=== PATIENT | male | born 1955 | race Caucasian/White ===

== ENCOUNTER 2023-03-15 21:29 | Emergency (ER) | payer MEDICARE, MEDICAID, SELFPAY ==
[2023-03-15 21:34] VITALS: BP 104/76; PULSE 92; PULSE 93; RESP 15; RESP 16; TEMP 36.4; O2SAT 97
[2023-03-15 21:35] VITALS: BP 104/76; PULSE 93; RESP 15; O2SAT 97
--- NOTE | 2023-03-15 21:43 | ED_ITS ---
HPI - Fall General Chief Complaint: Fall Stated Complaint: FALL Time Seen by Provider: 03/15/23 21:31 Source: other Source comment: EMS, report also called from [facility] Mode of arrival: ambulance Limitations: altered mental status and physical limitation Limitations comment: ROSA MARIA bilateral History of Present Illness HPI Narrative: [facility] patient. octavio CRANE. Wheel chair dependent. Found on the floor in the home. Reportedly unresponsive. Per nursing staff he vomited once. He arrives via [facility]. complains of feeling tired. Denies headache, neck pain or rib pain. Other than feeling tired he feels he is ok. Related Data Home Medications Medication Instructions Recorded Confirmed acarbose 100 mg tablet mg 03/15/23 atorvastatin 40 mg tablet mg 03/15/23 budesonide-formoterol HFA 160 inhalation 03/15/23 mcg-4.5 mcg/actuation aerosol inhaler (Symbicort) duloxetine 30 mg capsule,delayed mg PO 03/15/23 release duloxetine 60 mg capsule,delayed mg PO 03/15/23 release ezetimibe 10 mg tablet mg 03/15/23 insulin aspart U-100 100 unit/mL subcut 03/15/23 (3 mL) subcutaneous pen (Novolog FlexPen U-100 Insulin aspart) ipratropium 0.5 mg-albuterol 3 mg ml inhalation 03/15/23 (2.5 mg base)/3 mL nebulization soln metformin 1,000 mg tablet mg 03/15/23 metoprolol tartrate 25 mg tablet mg 03/15/23 pantoprazole 40 mg tablet,delayed mg PO 03/15/23 release quetiapine 100 mg tablet mg 03/15/23 semaglutide 0.25 mg or 0.5 mg (2 mg subcut 03/15/23 mg/1.5 mL) subcutaneous pen injector (Ozempic) tizanidine 4 mg tablet mg 03/15/23 valsartan 80 mg tablet mg 03/15/23 Allergies Allergy/AdvReac Type Severity Reaction Status Date / Time No Known Drug Allergies Allergy Verified 03/15/23 21:43 Review of Systems ROS Status of ROS 10 or more systems reviewed and unremarkable except as noted in history and below Eyes Reports: change in vision (not able to see much from right eye from old stroke. right eyelid close. ) Exam Constitutional Vital Signs - 24 hr 03/15/23 21:34 03/15/23 21:34 03/15/23 21:35 Temperature 97.5 F L Pulse Rate 92 H 93 H Pulse Rate [Monitor] 93 H Respiratory Rate 16 15 15 Blood Pressure 104/76 Blood Pressure [Right Arm] 104/76 Pulse Oximetry 97 97 Oxygen Delivery Method Room Air 03/15/23 23:42 03/16/23 00:00 03/16/23 00:30 Temperature Pulse Rate 91 H 93 H 94 H Pulse Rate [Monitor] Respiratory Rate 14 16 14 Blood Pressure 124/78 H 116/72 115/75 Blood Pressure [Right Arm] Pulse Oximetry 98 Oxygen Delivery Method Common normals: no apparent distress, oriented x3 and well nourished Eye Common normals: conjunctivae normal Eyelid: eyelids normal (right eye lid close. He is able to pull it open and then it closes) Conjunctiva: conjunctiva(e) normal Chest Common normals: inspection of chest normal and palpation of chest normal Respiratory Common normals: normal respiratory effort, no retractions, no use of accessory muscles and clear to auscultation bilaterally Cardio Common normals: regular rate, regular rhythm, S1 normal heart sound and S2 normal heart sound GI Common normals: Normal to inspection, nondistended, normoactive bowel sounds present, soft to palpation and non-tender Extremity Common normals: normal to inspection (bilat below knee amputee) and no joint enlargement Neuro Common normals: oriented x3 and moves all extremities Psych Appearance: grossly normal Course Vital Signs Vital signs: Vital Signs Temperature 97.5 F L 03/15/23 21:34 Pulse Rate 92 H 03/15/23 21:34 Respiratory Rate 16 03/15/23 21:34 Blood Pressure 104/76 03/15/23 21:34 Pulse Oximetry 97 03/15/23 21:34 Oxygen Delivery Method Room Air 03/15/23 21:34 Temperature 97.5 F L 03/15/23 21:34 Pulse Rate 94 H 03/16/23 00:30 Respiratory Rate 14 03/16/23 00:30 Blood Pressure 115/75 03/16/23 00:30 Pulse Oximetry 98 03/15/23 23:42 Oxygen Delivery Method Room Air 03/15/23 21:34 MDM - Fall MDM Narrative Medical decision making narrative: patient presents from [facility] asymptomatic. Reportedly fell from his wheel chair. He does not recall if he struck his head. Per nursing staff they found him unresponsive and he vomited once. Patient denies chest pain. States other than feeling tired he has no complaint. Exam without any acute findings. labs demonstrated mild hyperkalemia that was treated in the department with hydration and Kayexalate. Serial troponin neg. D-dimer neg. CT brain, C-spine without acute changes. Patient remained asymptomatic. UA ordered but patient states he did not have the urge to go and he refused catheterization . He is discharged [facility] to the [facility] in stable condition. working diagnosis of fall from his chair and possible head injury. He has mild elevation of his creatine that will need to be followed Lab Data Labs: Lab Results 03/15/23 03/16/23 Range/Units 22:03 00:26 WBC 12.7 H (4.0-11.0) 10^3/uL RBC 4.81 (4.70-6.10) 10^6/uL Hgb 12.1 L (14.0-18.0) g/dL Hct 39.5 L (42.0-54.0) % MCV 82.1 (80.0-94.0) fL MCH 25.2 L (25.9-34.0) pg MCHC 30.6 (29.9-35.2) g/dL RDW 17.1 H (11.0-15.0) % Plt Count 299 (150-450) 10^3/uL MPV 11.7 (9.5-13.5) fL Neut % (Auto) 76.5 H (43.0-75.0) % Lymph % (Auto) 15.5 L (20.5-60.0) % Becker % (Auto) 5.3 (1.7-12.0) % Eos % (Auto) 1.6 (0.9-7.0) % Baso % (Auto) 0.2 (0.2-2.0) % Neut # (Auto) 9.7 H (1.4-6.5) 10^3/uL Lymph # (Auto) 2.0 (1.2-3.8) 10^3/uL Becker # (Auto) 0.7 (0.3-0.8) 10^3/uL Eos # (Auto) 0.2 (0.0-0.7) 10^3/uL Baso # (Auto) 0.0 (0.0-0.1) 10^3/uL Abs Immat Gran (auto) 0.11 H (0.00-0.03) 10^3/uL Imm/Tot Granulo (auto) 0.9 H (0.0-0.5) % D-Dimer 0.38 (<=0.59) mg/L FEU Sodium 144 (136-145) mmol/L Potassium 5.2 H (3.5-5.1) mmol/L Chloride 107 (98-107) mmol/L Carbon Dioxide 26.2 (21.0-32.0) mmol/L Anion Gap 16.0 BUN 35.0 H (7.0-18.0) mg/dL Creatinine 1.35 H (0.70-1.30) mg/dL Est GFR ( Amer) >60 (>=60) Est GFR (Non-Af Amer) 53 L (>=60) BUN/Creatinine Ratio 25.9 Glucose 140 H (74-106) mg/dL Calcium 8.9 (8.5-10.1) mg/dL Troponin I High Sens 5.7 4.1 (4.0-76.1) pg/mL Discharge Plan Discharge Chief Complaint: Fall Clinical Impression: Concussion with loss of consciousness, Fall, Acute hyperkalemia Patient Disposition: Home, Self-Care Condition: Good Prescriptions / Home Meds: No Action atorvastatin 40 mg tablet ipratropium-albuterol 0.5 mg-3 mg(2.5 mg base)/3 mL solution for nebulization INHALATION tizanidine 4 mg tablet valsartan 80 mg tablet quetiapine 100 mg tablet acarbose 100 mg tablet pantoprazole 40 mg tablet,delayed release (DR/EC) PO metformin 1,000 mg tablet ezetimibe 10 mg tablet insulin aspart U-100 [Novolog FlexPen U-100 Insulin] 100 unit/mL (3 mL) insulin pen SUBCUT metoprolol tartrate 25 mg tablet duloxetine 30 mg capsule,delayed release(DR/EC) PO duloxetine 60 mg capsule,delayed release(DR/EC) PO budesonide-formoterol [Symbicort] 160-4.5 mcg/actuation HFA aerosol inhaler INHALATION Ozempic 0.25 mg or 0.5 mg(2 mg/1.5 mL) pen injector SUBCUT Instructions: Concussion (ED), Fall Prevention for Older Adults (ED), Hyperkalemia (ED) Additional Instructions: need to have potassium and renal function rechecked tomorrow Stand Alone Forms: Portal Instructions Referrals: Physician,Non-Staff, MD [Primary Care Provider] - 1 week
--- NOTE | 2023-03-15 21:48 | XR_ITS ---
[address] [address] Patient Name: DALILA MCDOWELL MRN: [id number] date: 1955 Sex: M Assigned Patient Location: ED.MAIN Current Patient Location: ER Accession/Order Number: [id number] Exam Date: 03/15/2023 22:05 Report Date: 03/15/2023 22:29 At the request of: YECENIA FRECNH Procedure: XR chest 1V EXAMINATION: XR chest 1V HISTORY: Syncope COMPARISON: Chest x-rays October 29, 2019 TECHNIQUE: Portable chest FINDINGS: The lung parenchyma is free of consolidation or infiltrate. No pneumothorax or pleural effusion. The cardiac, mediastinal and hilar contours are normal. The visualized osseous structures exhibit no gross abnormality. IMPRESSION: No acute cardiopulmonary abnormality. Electronically authenticated by: KATHIE GARCIA Date: 03/15/2023 22:29
--- NOTE | 2023-03-15 21:48 | CT_ITS ---
The [address] [address] Patient Name: DALILA MCDOWELL MRN: [id number] date: 1955 Sex: M Assigned Patient Location: ED.MAIN Current Patient Location: Accession/Order Number: [id number] Exam Date: 03/15/2023 22:05 Report Date: 03/15/2023 22:38 At the request of: YECENIA FRENCH Procedure: CT head/brain wo con NONCONTRAST CT SCAN OF THE HEAD CT head/brain wo con HISTORY: syncope TECHNIQUE: Multiple axial images are taken from the level the vertex down to the base of the skull without the use of IV contrast. Images were then reconstructed in the sagittal and coronal planes. This exam was performed according to our departmental dose-optimization program which includes use of Automated Exposure Control, adjustment of the mA and/or kV according to patient size and/or use of iterative reconstruction technique. COMPARISON: None. FINDINGS: Brain Parenchyma: No intracranial mass. No intracranial hemorrhage. Encephalomalacia is demonstrated in the posterior left temporal lobe as well as bilateral occipital lobes. Posterior fossa: There is encephalomalacia in the left cerebellar hemisphere. Midline shift: None Extra-axial fluid collection: None Ventricles: Normal. Mastoid air cells: Normal. Sinuses: Mucus retention cyst in the right maxillary sinus. Cranium: No depressed skull fracture. Soft tissues: Normal. Orbits: Orbits demonstrate postoperative changes from prior cataract resection with prosthetic lens implant. IMPRESSION: 1. No noncontrast CT evidence for acute intracranial pathology. 2. 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 3. If symptoms continue and if clinically indicated, MRI may help better delineate. Electronically authenticated by: TERRENCE TREJO Date: 03/15/2023 22:38
--- NOTE | 2023-03-15 21:48 | ECG_ITS ---
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
--- NOTE | 2023-03-15 21:48 | CT_ITS ---
The [address] [address] Patient Name: DALILA MCDOWELL MRN: [id number] date: 1955 Sex: M Assigned Patient Location: ED.MAIN Current Patient Location: ER Accession/Order Number: [id number] Exam Date: 03/15/2023 22:05 Report Date: 03/15/2023 22:34 At the request of: YECENIA FRENCH Procedure: CT cervical spine wo con EXAM: CT cervical spine wo con HISTORY: Found unresponsive after fall out of wheelchair COMPARISON: None. TECHNIQUE: Axial CT imaging is performed through the cervical spine. Sagittal and coronal reformatted/reconstructed sequences were additionally performed FINDINGS: IMPRESSION: Age indeterminate straightening of the normal cervical lordosis. Multilevel intervertebral disc space narrowing, endplate, uncovertebral and facet arthrosis. The dens and lateral masses of C1 are symmetric. No visualized prevertebral soft tissue edema. The visualized osseous skull base exhibits no gross visualized abnormality. Mild atherosclerosis of the vascular structures. The visualized pulmonary apices, thoracic inlet and airway exhibit no discrete abnormality. Electronically authenticated by: KATHIE GARCIA Date: 03/15/2023 22:34
[2023-03-15 22:10] LABS: Basophils Percent Auto 0.2 % (0.2-2.0); Eosinophils Absolute Auto 0.2 10^3/uL (0.0-0.7); Eosinophils Percent Auto 1.6 % (0.9-7.0); Hematocrit 39.5 % (42.0-54.0); Hemoglobin 12.1 g/dL (14.0-18.0); Immature Granulocytes Abs Auto 0.11 10^3/uL (0.00-0.03); Immature Granulocytes Pct Auto 0.9 % (0.0-0.5); Lymphocytes Percent Auto 15.5 % (20.5-60.0); Mean Corpuscular HGB Conc 30.6 g/dL (29.9-35.2); Mean Corpuscular Hemoglobin 25.2 pg (25.9-34.0); Mean Corpuscular Volume 82.1 fL (80.0-94.0); Mean Platelet Volume 11.7 fL (9.5-13.5); Monocytes Absolute Auto 0.7 10^3/uL (0.3-0.8); Monocytes Percent Auto 5.3 % (1.7-12.0); Neutrophils Absolute Auto 9.7 10^3/uL (1.4-6.5); Neutrophils Percent Auto 76.5 % (43.0-75.0); Platelet Count 299 10^3/uL (150-450); Red Blood Count 4.81 10^6/uL (4.70-6.10); Red Cell Distribution Width 17.1 % (11.0-15.0); White Blood Count 12.7 10^3/uL (4.0-11.0)
[2023-03-15 22:24] LABS: D Dimer 0.38 mg/L FEU (<=0.59)
[2023-03-15 22:27] LABS: BUN Creatinine Ratio 25.9; Calcium 8.9 mg/dL (8.5-10.1); Carbon Dioxide 26.2 mmol/L (21.0-32.0); Chloride 107 mmol/L (98-107); Estimated GFR (African America >60 (>=60); Estimated GFR (Non-African Ame 53 (>=60); Glucose 140 mg/dL (74-106); Potassium 5.2 mmol/L (3.5-5.1); Sodium 144 mmol/L (136-145); Troponin I High Sensitivity 5.7 pg/mL (4.0-76.1)
[2023-03-15] MEDS: SODIUM POLYSTYRENE SULFON 15 GM/60 ML ORAL.SUSP KAYEXALATE 30 GM PO (23:38)
[2023-03-15] MEDS: 0.9 % SODIUM CHLORIDE 1,000 ML 999 ML IV (23:39)
[2023-03-15 23:42] VITALS: BP 124/78; PULSE 91; RESP 14; O2SAT 98
[2023-03-16] VITALS (7 sets, daily range): BP systolic 115–139; BP diastolic 72–94; PULSE 85–94; RESP 14–25
[2023-03-16 00:49] LABS: Troponin I High Sensitivity 4.1 pg/mL (4.0-76.1)
[2023-03-16] MEDS: 0.9 % SODIUM CHLORIDE 1,000 ML 999 ML IV (01:04)
--- NOTE | 2023-03-16 01:36 | PC.NURSE ---
attempted to get patient to urinate and he refused, he refused a straight cath.
== END 2023-03-16 03:39 | disposition home or self-care (01) ==
PROVIDERS: Emergency Provider Internal Medicine
DX: S06.0X9A Concussion with loss of consciousness of unspecified duration, initial encounter (principal); E87.5 Hyperkalemia; Z89.512 Acquired absence of left leg below knee; Z89.511 Acquired absence of right leg below knee; Z99.3 Dependence on wheelchair; Z79.899 Other long term (current) drug therapy; Z79.4 Long term (current) use of insulin; W05.0XXA Fall from non-moving wheelchair, initial encounter
CPT/HCPCS: 36415; 70450; 71045; 72125; 80048; 80307; 84484; 85025; 85378; 93005; 99285

== ENCOUNTER 2023-04-03 08:27 | Emergency (ER) | payer MEDICARE, MEDICAID, SELFPAY ==
[2023-04-03 08:30] VITALS: BP 152/76; PULSE 121; RESP 18; TEMP 36.6; O2SAT 96; BMI 29.5
--- NOTE | 2023-04-03 08:43 | CT_ITS ---
The [address] [address] Patient Name: DALILA MCDOWELL MRN: [id number] date: 1955 Sex: M Assigned Patient Location: ER Current Patient Location: Accession/Order Number: [id number] Exam Date: 04/03/2023 09:55 Report Date: 04/03/2023 10:35 At the request of: LUDA DIOR Procedure: CT abdomen pelvis w con EXAM: CT abdomen pelvis w con HISTORY: Wound to the testicles with a scrotal abscess. COMPARISON: None. TECHNIQUE: IV contrast only was administered. Sagittal and coronal reformatted images were produced. Dose reduction techniques were achieved by using automated exposure control and/or adjustment of mA and/or kV according to patient size and/or use of iterative reconstruction technique. FINDINGS: Evaluation of lung bases is limited due to breathing motion artifact. There are mild chronic changes in the lung bases. Lower mediastinal structures are normal. The liver, spleen, pancreas, gallbladder and enhance normally. There is mild left adrenal hypertrophy. The right adrenal gland is normal. The kidneys enhance symmetrically and show no calcifications or hydronephrosis. There is scattered calcified and noncalcified plaque in the aorta and branch vessels. There are stents in the common iliac arteries. The large and small bowel are normal caliber. A normal appendix is seen in the right lower quadrant. Pelvic organs are normal. Urinary bladder is normal. There is no free air or free fluid and no inflammatory stranding is seen. In the left scrotum, there is a collection of air and fluid material measuring roughly 4.3 x 12.6 cm. No suspicious or destructive bone lesions are seen. CT/CT abdomen pelvis w con IMPRESSION: No acute process in the abdomen and pelvis. There is what is most likely an abscess in the left scrotum. This appears to be contained in the left scrotum, although the evaluation of this area is somewhat limited. Electronically authenticated by: DALILA MENDEZ Date: 04/03/2023 10:35
--- NOTE | 2023-04-03 08:43 | ECG_ITS ---
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
--- NOTE | 2023-04-03 08:51 | ED.GENADUL1 ---
HPI - General Adult General Chief complaint: Urogenital-Male Stated complaint: WEAKNESS Time Seen by Provider: 04/03/23 08:41 Source: patient Mode of arrival: ambulance History of Present Illness HPI narrative: Patient is a 67-year-old male who is presenting to the Emergency Room from a nursing facility [facility] secondary to elevated blood sugars, dilating his much, not responding as much, lethargic, confusion; patient presented by EMS from the nursing facility. Patient is alert and oriented ?3, GCS 15. Patient is a bilateral amputation below the knee. Patient is complaining of pain beneath the scrotum. Patient has hardening soft tissue area beneath the scrotum, concern for scrotal abscess. Patient is diabetic. Patient denies any chest pain, shortness of breath, he denies any abdominal pain, nausea, vomiting, or any other acute complaints. Patient states he has no ulcerations On his sacrum. Patient states his testicles do not hurt. Patient has no acute complaints at this time. . All systems are negative except as noted/marked. All systems reviewed and otherwise negative. . Nurses note and vital signs reviewed and patient is not hypoxic. Patient is tachycardic. General: The patient appears Mild distress secondary to tachycardia, probable sepsis. Patient is resting comfortably on cart. Patient is not toxic, Slightly lethargic, or listless Skin: Warm, clammy,, no pallor noted. There is no rash noted. No petechiae, purpura. Patient was rolled over, patient has no signs of decubitus ulcerations. Head: Normocephalic, atraumatic Eye: Normal conjunctiva, no drainage, EOMI. PERRL Ears, Nose, Mouth, and Throat: oral mucosa is dry.. Nares patent. Mouth without vesicles. Cardiovascular: Tachycardic Regular Rate and Rhythm, no murmur, gallop, rub Respiratory: Patient is in no distress, no accessory muscle use, lungs are clear to auscultation, no wheezing, rales or rhonchi Back: non-tender, no CVA tenderness bilaterally to percussion. No CT LS midline pain GI: soft, no tenderness to palpation, no masses appreciated. No rebound, guarding, or rigidity noted. No flank pain bilateral, No distention. : Patient is circumcised, patient has 2 descended testicles, no tenderness to palpation to bilateral testicles. Patient does have a moderate size firm mass to the perineum, below the scrotum, patient has mild to moderate tenderness to palpation to the area as well. Musculoskeletal: Patient has full range of motion of all of the extremities; Patient is a bilateral below-knee amputation, no motor, sensory, or focal neurological deficits Neurological: A&O x3, normal speech Psychiatric: Cooperative Related Data Home Medications Medication Instructions Recorded Confirmed acarbose 100 mg tablet mg 03/15/23 atorvastatin 40 mg tablet mg 03/15/23 budesonide-formoterol HFA 160 inhalation 03/15/23 mcg-4.5 mcg/actuation aerosol inhaler (Symbicort) duloxetine 30 mg capsule,delayed mg PO 03/15/23 release duloxetine 60 mg capsule,delayed mg PO 03/15/23 release ezetimibe 10 mg tablet mg 03/15/23 insulin aspart U-100 100 unit/mL subcut 03/15/23 (3 mL) subcutaneous pen (Novolog FlexPen U-100 Insulin aspart) ipratropium 0.5 mg-albuterol 3 mg ml inhalation 03/15/23 (2.5 mg base)/3 mL nebulization soln metformin 1,000 mg tablet mg 03/15/23 metoprolol tartrate 25 mg tablet mg 03/15/23 pantoprazole 40 mg tablet,delayed mg PO 03/15/23 release quetiapine 100 mg tablet mg 03/15/23 semaglutide 0.25 mg or 0.5 mg (2 mg subcut 03/15/23 mg/1.5 mL) subcutaneous pen injector (Ozempic) tizanidine 4 mg tablet mg 03/15/23 valsartan 80 mg tablet mg 03/15/23 Allergies Allergy/AdvReac Type Severity Reaction Status Date / Time No Known Drug Allergies Allergy Verified 03/15/23 21:43 Exam Constitutional Vital Signs, click to edit/add: Last Vital Signs Temp 97.8 F 04/03/23 08:30 Pulse 121 H 04/03/23 08:30 Resp 18 04/03/23 08:30 BP 135/70 H 04/03/23 10:16 Pulse Ox 96 04/03/23 08:30 O2 Del Method Room Air 04/03/23 08:30 Course Vital Signs Vital signs: Vital Signs Temperature 97.8 F 04/03/23 08:30 Pulse Rate 121 H 04/03/23 08:30 Respiratory Rate 18 04/03/23 08:30 Blood Pressure 152/76 H 04/03/23 08:30 Pulse Oximetry 96 04/03/23 08:30 Oxygen Delivery Method Room Air 04/03/23 08:30 Temperature 97.8 F 04/03/23 08:30 Pulse Rate 121 H 04/03/23 08:30 Respiratory Rate 18 04/03/23 08:30 Blood Pressure 135/70 H 04/03/23 10:16 Pulse Oximetry 96 04/03/23 08:30 Oxygen Delivery Method Room Air 04/03/23 08:30 Medical Decision Making MDM Narrative Medical decision making narrative: Multiple phone calls have been made on behalf of this patient. I have spoken to the on-call urologist, [id number]. After paging for approximately one hour; Once we are able to obtain his cell phone number, he called back shortly. We're initially calling his office number because we do not have the appropriate number with registration to contact him. Secondary to air, infection, scrotum, poorly controlled diabetic, he recommended transfer to a tertiary care center. Patient states that he had both of his legs amputated at the [facility], per medical. Patient was asking to be transferred to [facility] if possible. [id number] Lieberman After approximately 30 minutes in paging him through the transfer center at the [facility]. He is very pleasant to talk to, very thankful for the conversation. He stated the patient needs to be transferred as soon as possible to get to the Emergency Room because patient will most likely be going to surgery and these infections can progress rapidly. He is very helpful and recommended stat transfer Emergency Room to Emergency Room to [facility], [facility]. I then spoke to the Emergency Room physician, very pleasant as well, Dr. Lucretia Echeverria. She is aware of Zosyn and vancomycin, recommended starting clindamycin as well and agrees with transfer from Emergency Room to Emergency Room. Patient's heart rate has improved from the 120s down to the 105?113 range. Patient has not been hypotensive. Patient has not had increased respiratory rate. Patient has been given several doses of pain medication, he will be given a 2nd dose of morphine and Zofran prior to discharge. Patient be transferred directly from the Emergency Room to Emergency Room, evaluated by surgical team and most likely going to the operating room for definitive treatment. Patient will be given another dose of Zofran and morphine prior to discharge. We will also check patient's blood sugar again, And treat with subcutaneous insulin if needed. Critical care time 35 minutes exclusive from separate billable procedures that were performed. The following was considered in the determination of critical care but not limited to the level of medical decision making, intensive cardiac and/or respiratory monitoring, frequent vital sign monitoring, evaluation of laboratory studies, evaluation of radiographic studies, oxygen monitoring, and constant monitoring and speaking to family at bedside. Lab Data Lab results reviewed: Yes I reviewed the patient's lab results Labs: Lab Results 04/03/23 04/03/23 04/03/23 Range/Units 08:40 11:50 14:48 WBC 19.8 H (4.0-11.0) 10^3/uL RBC 4.23 L (4.70-6.10) 10^6/uL Hgb 10.6 L (14.0-18.0) g/dL Hct 32.7 L (42.0-54.0) % MCV 77.3 L (80.0-94.0) fL MCH 25.1 L (25.9-34.0) pg MCHC 32.4 (29.9-35.2) g/dL RDW 17.3 H (11.0-15.0) % Plt Count 296 (150-450) 10^3/uL MPV 13.2 (9.5-13.5) fL Seg Neuts % (Manual) 88.0 Band Neutrophils % 2.0 (0-5) % Lymphocytes % (Manual) 6.0 L (20.5-60.0) % Monocytes % (Manual) 4.0 (1.7-12.0) % Eosinophils % (Manual) 0.0 L (0.9-7.0) % Basophils % (Manual) 0.0 L (0.2-2.0) % Neutrophils # (Manual) 17.42 H (1.4-6.5) 10^3/uL Band Neutrophils # 0.4 H (0.0-0.3) 10^3/uL Lymphocytes # (Manual) 1.18 L (1.20-3.80) 10^3/uL Monocytes # (Manual) 0.79 (0.30-0.80) 10^3/uL Eosinophils # (Manual) 0.00 (0.00-0.70) 10^3/uL Basophils # (Manual) 0.00 (0.00-0.10) 10^3/uL Poikilocytosis 1+ Tear Drop Cells 1+ Ovalocytes 1+ PT 10.9 (9.0-11.6) sec INR 1.03 Sodium 136 (136-145) mmol/L Potassium 3.7 (3.5-5.1) mmol/L Chloride 99 (98-107) mmol/L Carbon Dioxide 24.6 (21.0-32.0) mmol/L Anion Gap 16.1 BUN 13.0 (7.0-18.0) mg/dL Creatinine 0.88 (0.70-1.30) mg/dL Est GFR ( Amer) >60 (>=60) Est GFR (Non-Af Amer) >60 (>=60) BUN/Creatinine Ratio 14.8 Glucose 194 H (74-106) mg/dL Lactate 1.1 (0.4-2.0) mmol/L Calcium 8.5 (8.5-10.1) mg/dL Magnesium 1.3 L (1.8-2.4) mg/dL Total Bilirubin 0.7 (0.2-1.0) mg/dL AST 11 L (15-37) U/L ALT 12 L (16-63) U/L Alkaline Phosphatase 111 (46-116) U/L Total Protein 7.1 (6.4-8.2) g/dL Albumin 2.8 L (3.4-5.0) g/dL Globulin 4.3 g/dL Albumin/Globulin Ratio 0.7 Urine Color Yellow (YELLOW) Urine Clarity Clear (CLEAR) Urine pH 5.5 (5.0-9.0) Ur Specific [place] <=1.005 A (1.005-1.025) Urine Protein 30 A (NEG/TRACE) mg/dL Urine Glucose (UA) Negative (NEGATIVE) mg/dL Urine Ketones Trace A (NEGATIVE) mg/dL Urine Occult Blood Moderate A (NEGATIVE) Urine Nitrite Negative (NEGATIVE) Urine Bilirubin Negative (NEGATIVE) Urine Urobilinogen 2.0 A (0.2-1.0) EU/dL Ur Leukocyte Esterase Negative (NEGATIVE) Urine RBC 10-20 A (0-2) #/HPF Urine WBC None seen (NONE SEEN) #/HPF Ur Squamous Epith Cells Few A (NONE/RARE) #/LPF Urine Bacteria None seen (NONE SEEN) #/HPF Urine Mucus None seen (NONE SEEN) POC Glucose 183 H (74-106) mg/dL Imaging Data CT scan - abdomen: Radiologist's impression: [facility] [address], [place] [address] Patient Name: DALILA MCDOWELL MRN: [id number] date: 1955 Sex: M Assigned Patient Location: ER Current Patient Location: ER Accession/Order Number: [id number] Exam Date: 04/03/2023 09:55 Report Date: 04/03/2023 10:35 At the request of: LUDA DIOR Procedure: CT abdomen pelvis w con EXAM: CT abdomen pelvis w con HISTORY: Wound to the testicles with a scrotal abscess. COMPARISON: None. TECHNIQUE: IV contrast only was administered. Sagittal and coronal reformatted images were produced. Dose reduction techniques were achieved by using automated exposure control and/or adjustment of mA and/or kV according to patient size and/or use of iterative reconstruction technique. FINDINGS: Evaluation of lung bases is limited due to breathing motion artifact. There are mild chronic changes in the lung bases. Lower mediastinal structures are normal. The liver, spleen, pancreas, gallbladder and enhance normally. There is mild left adrenal hypertrophy. The right adrenal gland is normal. The kidneys enhance symmetrically and show no calcifications or hydronephrosis. There is scattered calcified and noncalcified plaque in the aorta and branch vessels. There are stents in the common iliac arteries. The large and small bowel are normal caliber. A normal appendix is seen in the right lower quadrant. Pelvic organs are normal. Urinary bladder is normal. There is no free air or free fluid and no inflammatory stranding is seen. In the left scrotum, there is a collection of air and fluid material measuring roughly 4.3 x 12.6 cm. No suspicious or destructive bone lesions are seen. IMPRESSION: No acute process in the abdomen and pelvis. There is what is most likely an abscess in the left scrotum. This appears to be contained in the left scrotum, although the evaluation of this area is somewhat limited. ECG Data Attestation: I personally reviewed and interpreted this ECG as follows: Interpretation: EKG interpretation. Tachycardia at 121. Left axis deviation. Nonspecific ST changes, right bundle-branch block noted, QTC of 418. Critical Care Time Critical Care Time Critical Care Time: Yes Total Critical Care Time: 35 Attestation: Critical care time 35 minutes exclusive from separate billable procedures that were performed. 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 ER doctor Dr Jasmine Condition: Critical Mode of Transportation: EMS Discharge Date/Time: 04/03/23 15:24
[2023-04-03] MEDS: LACTATED RINGER'S SOLUTION 1,000 ML 999 ML IV (09:12)
[2023-04-03 09:17] VITALS: BP 117/69
[2023-04-03 09:24] LABS: Hematocrit 32.7 % (42.0-54.0); Hemoglobin 10.6 g/dL (14.0-18.0); Mean Corpuscular HGB Conc 32.4 g/dL (29.9-35.2); Mean Corpuscular Hemoglobin 25.1 pg (25.9-34.0); Mean Corpuscular Volume 77.3 fL (80.0-94.0); Mean Platelet Volume 13.2 fL (9.5-13.5); Platelet Count 296 10^3/uL (150-450); Red Blood Count 4.23 10^6/uL (4.70-6.10); Red Cell Distribution Width 17.3 % (11.0-15.0); White Blood Count 19.8 10^3/uL (4.0-11.0)
[2023-04-03 09:25] LABS: Lactate/Lactic Acid 1.1 mmol/L (0.4-2.0)
[2023-04-03 09:26] LABS: INR 1.03; Prothrombin Time 10.9 sec (9.0-11.6)
[2023-04-03 09:30] VITALS: BP 110/78
[2023-04-03 09:31] LABS: Alanine Aminotransferase 12 U/L (16-63); Albumin Globulin Ratio 0.7; Albumin Level 2.8 g/dL (3.4-5.0); Alkaline Phosphatase 111 U/L (46-116); Anion Gap 16.1; Aspartate Amino Transferase 11 U/L (15-37); BUN Creatinine Ratio 14.8; Bilirubin Total 0.7 mg/dL (0.2-1.0); Calcium 8.5 mg/dL (8.5-10.1); Carbon Dioxide 24.6 mmol/L (21.0-32.0); Chloride 99 mmol/L (98-107); Estimated GFR (African America >60 (>=60); Estimated GFR (Non-African Ame >60 (>=60); Globulin 4.3 g/dL; Glucose 194 mg/dL (74-106); Magnesium 1.3 mg/dL (1.8-2.4); Potassium 3.7 mmol/L (3.5-5.1); Sodium 136 mmol/L (136-145); Total Protein 7.1 g/dL (6.4-8.2)
[2023-04-03 09:45] VITALS: BP 144/52
[2023-04-03 10:13] LABS: Band Neutrophils Absolute 0.4 10^3/uL (0.0-0.3); Lymphocytes Absolute Manual 1.18 10^3/uL (1.20-3.80); Segmented Neut Absolute Manual 17.42 10^3/uL (1.4-6.5)
[2023-04-03 10:14] LABS: Monocytes Absolute Manual 0.79 10^3/uL (0.30-0.80); Poikilocytosis 1+
[2023-04-03 10:15] LABS: Ovalocytes 1+; Tear Drop Cells 1+
[2023-04-03 10:16] VITALS: BP 135/70
--- NOTE | 2023-04-03 10:30 | XR_ITS ---
The [address] [address] Patient Name: DALILA MCDOWELL MRN: [id number] date: 1955 Sex: M Assigned Patient Location: ER Current Patient Location: ER Accession/Order Number: [id number] Exam Date: 04/03/2023 10:30 Report Date: 04/03/2023 10:47 At the request of: LUDA DIOR Procedure: XR chest 1V EXAM: Portable chest REASON FOR EXAM: Shortness of breath with weakness and loss of appetite. TECHNIQUE: A portable frontal view of the chest was obtained. COMPARISON: 03/15/2023. FINDINGS: The lungs are well-inflated and clear. The heart and mediastinum are stable in appearance. There is no mass or pathologic adenopathy. Osseous structures are normal. XR/XR chest 1V IMPRESSION: No acute cardiopulmonary process. Electronically authenticated by: DALILA MENDEZ Date: 04/03/2023 10:47
[2023-04-03] MEDS: MAGNESIUM OXIDE 400 MG TABLET 800 MG PO (10:36)
[2023-04-03 12:19] LABS: Bilirubin Urine NEGATIVE (NEGATIVE); Blood Urine MODERATE (NEGATIVE); Clarity Urine CLEAR (CLEAR); Color Urine YELLOW (YELLOW); Glucose Urine UA NEGATIVE (NEGATIVE); Ketones Urine TRACE mg/dL (NEGATIVE); Leukocyte Esterase Urine NEGATIVE (NEGATIVE); Nitrite Urine NEGATIVE (NEGATIVE); Protein Urine 30 mg/dL (NEG/TRACE); Specific Gravity Urine <=1.005 (1.005-1.025); pH Urine 5.5 (5.0-9.0)
[2023-04-03 12:27] LABS: Bacteria Urine NONE SEEN #/HPF (NONE SEEN); WBC Urine NONE SEEN #/HPF (NONE SEEN)
[2023-04-03 12:28] LABS: Mucus Urine NONE SEEN (NONE SEEN); Squamous Epithelial Cell Urine FEW #/LPF (NONE/RARE)
[2023-04-03] MEDS: LACTATED RINGER'S SOLUTION 1,000 ML 125 ML IV (13:00)
[2023-04-03] MEDS: VANCOMYCIN HCL 1,000 MG in 0.9 % SODIUM CHLORIDE 250 ML 250 MG IV (13:26)
[2023-04-03] MEDS: MORPHINE SULFATE 4 MG/ML VIAL IV ×2 (13:26→15:01)
[2023-04-03] MEDS: LACTATED RINGER'S SOLUTION 1,000 ML 2500 ML IV (13:36)
[2023-04-03] MEDS: PIPERACILLIN SODIUM/TAZOBACTAM 4.5 GM VIAL IV (14:35)
[2023-04-03] MEDS: CLINDAMYCIN PHOSPHATE/D5W 900 MG/50 ML PIGGYBACK 100 MG IV (14:39)
[2023-04-03 14:50] LABS: Glucometer 183 mg/dL (74-106)
[2023-04-03] MEDS: ONDANSETRON PF 4 MG/2 ML VIAL IV (15:01)
--- NOTE | 2023-04-03 15:34 | PC.NURSE ---
this nurse gave 2 units of regular insulin prior to disposition witneesed by nilda
== END 2023-04-03 15:24 | disposition short-term general hospital (02) ==
PROVIDERS: Emergency Provider Emergency Medicine
DX: A41.9 Sepsis, unspecified organism (principal); E11.65 Type 2 diabetes mellitus with hyperglycemia; N49.3 Fournier gangrene; N49.2 Inflammatory disorders of scrotum; Z79.899 Other long term (current) drug therapy; Z79.84 Long term (current) use of oral hypoglycemic drugs; Z79.4 Long term (current) use of insulin; Z89.612 Acquired absence of left leg above knee; Z89.611 Acquired absence of right leg above knee
CPT/HCPCS: 36415; 71045; 74177; 80053; 81001; 83605; 83735; 84145; 85007; 85025; 85610; 87040; 93005; 96374; 96375; 96376; 99285; J3370; Q9967

== ENCOUNTER 2023-12-14 13:37 | Emergency (ER) | payer MEDICARE, MEDICAID, SELFPAY ==
[2023-12-14 13:42] VITALS: BP 178/97; PULSE 94; TEMP 36.9; O2SAT 97
--- NOTE | 2023-12-14 13:43 | CT_ITS ---
The [address] [address] Patient Name: DALILA MCDOWELL MRN: [id number] date: 1955 Sex: M Assigned Patient Location: ER Current Patient Location: Accession/Order Number: [id number] Exam Date: 12/14/2023 14:39 Report Date: 12/14/2023 15:53 At the request of: MARCO A BOTELLO Procedure: CT abdomen pelvis w con EXAMINATION: CT abdomen pelvis w con HISTORY: Umbilical mass COMPARISON: CT abdomen pelvis 04/03/2023 TECHNIQUE: Axial, Coronal, and Sagittal images were obtained without and/or with IV contrast as indicated by examination type. Dose reduction techniques were achieved by using automated exposure control and/or adjustment of mA and/or kV according to patient size and/or use of iterative reconstruction technique. FINDINGS: LUNG BASES: No visible pulmonary or pleural disease. LIVER: No enlargement, atrophy, suspicious density, or significant focal lesion. BILIARY: No dilatation or calcification. PANCREAS: No lesion, fluid collection, or abnormal duct dilatation. SPLEEN: No enlargement or focal lesion. ADRENALS: Stable small nonspecific nodules bilaterally. KIDNEYS: No mass, obstruction, or calcification. BOWEL/MESENTERY: Mild diverticulosis of distal colon; no acute inflammatory changes. No visible mass, obstruction, or bowel wall thickening. Normal appendix. Unremarkable stomach and small bowel. AORTA/VASCULAR: No aneurysm or dissection. Endovascular stents within bilateral iliac arteries. RETROPERITONEUM: No mass or adenopathy. LYMPH NODES: No adenopathy. URINARY BLADDER: No visible focal wall thickening, lesion, or calculus. PELVIC ORGANS: Incidental small diverticulum. No stones or mass. ABDOMINAL WALL: On the right margin of the umbilicus is a 1.9 cm round hypodensity with surrounding inflammatory changes and slightly thickened wall; no free air, possibly an abscess. BONES: No bony lesion or fracture. OTHER: Negative. CT/CT abdomen pelvis w con IMPRESSION: 1. Small 1.9 cm lesion versus fluid collection versus abscess along the right margin of the umbilicus with moderate surrounding inflammatory. No intraperitoneal or bowel involvement. I suspect this represents an abscess. Electronically authenticated by: BRUNO BLACK Date: 12/14/2023 15:53
--- NOTE | 2023-12-14 13:44 | ED_ITS ---
HPI HPI - General Adult General Chief complaint: Wound/Laceration Stated complaint: WOUND Time Seen by Provider: 12/14/23 13:40 History of Present Illness HPI narrative: Patient is a 68-year-old male who presents to the emergency department by ambulance for a firm mass in the umbilicus that has been present for the last 2 weeks. Patient states that it is painful mildly, intermittently. He has had no fevers, chills, nausea, vomiting. He denies any issues eating and drinking. He asked for Tylenol at the assisted living where he is a resident and the physician recommended he come to the emergency department today, no testing has been ordered and he has not had any change in his symptoms today. No medications taken prior to arrival other than the Tylenol. Patient states he has had no issues urinating or with bowel movements. Related Data Home Medications ?Medication ?Instructions ?Recorded ?Confirmed acarbose 100 mg tablet mg 03/15/23 atorvastatin 40 mg tablet mg 03/15/23 budesonide-formoterol HFA 160 inhalation 03/15/23 mcg-4.5 mcg/actuation aerosol inhaler (Symbicort) duloxetine 30 mg capsule,delayed mg PO 03/15/23 release duloxetine 60 mg capsule,delayed mg PO 03/15/23 release ezetimibe 10 mg tablet mg 03/15/23 insulin aspart U-100 100 unit/mL subcut 03/15/23 (3 mL) subcutaneous pen (Novolog FlexPen U-100 Insulin aspart) ipratropium 0.5 mg-albuterol 3 mg ml inhalation 03/15/23 (2.5 mg base)/3 mL nebulization soln metformin 1,000 mg tablet mg 03/15/23 metoprolol tartrate 25 mg tablet mg 03/15/23 pantoprazole 40 mg tablet,delayed mg PO 03/15/23 release quetiapine 100 mg tablet mg 03/15/23 semaglutide 0.25 mg or 0.5 mg (2 mg subcut 03/15/23 mg/1.5 mL) subcutaneous pen injector (Ozempic) tizanidine 4 mg tablet mg 03/15/23 valsartan 80 mg tablet mg 03/15/23 Previous Rx's ?Medication ?Instructions ?Recorded cephalexin 500 mg capsule 500 mg PO Q8H 10 days #30 caps 12/14/23 sulfamethoxazole 800 1 tab PO BID 10 days #20 tabs 12/14/23 mg-trimethoprim 160 mg tablet (Bactrim DS) Allergies Allergy/AdvReac Type Severity Reaction Status Date / Time No Known Drug Allergies Allergy Verified 03/15/23 21:43 Opioid HPI Opioid Management Most Recent Opioid Data: Last Pain Scale 8 12/14/23 14:17 Last ED Pain Assessment 12/14/23 14:17 Review of Systems ROS Constitutional Denies: fever or chills Ears, nose, mouth, and throat Denies: throat pain or nasal congestion Cardiovascular Denies: chest pain Respiratory Denies: shortness of breath Gastrointestinal Reports: abdominal pain; Denies: nausea, vomiting or diarrhea Genitourinary Denies: painful urination Musculoskeletal Denies: back pain Integumentary/Breast Denies: rash Hematologic/Lymphatic Denies: easy bruising or easy bleeding Exam Narrative Exam Narrative: Gen.: Awake, alert, in no distress Head: Normocephalic, atraumatic ENT: Moist mucous membranes Respiratory: No respiratory distress Gastrointestinal: Abdomen is soft, nondistended Erythematous bulging in the umbilicus, small herniated area. Surrounding abdomen is firm. Nontender to palpation, no fluctuance, open wounds or drainage. Extremities: Moves extremities equally Psych: Normal mood and affect Neuro: No focal neuro deficit Skin: Warm, dry, intact Constitutional Vital Signs, click to edit/add: Last Vital Signs Temp 98.4 F 12/14/23 13:42 Pulse 94 H 12/14/23 13:42 Resp 15 12/14/23 13:42 BP 178/97 H 12/14/23 13:42 Pulse Ox 97 12/14/23 13:42 O2 Del Method Room Air 12/14/23 13:42 Course Vital Signs Vital signs: Vital Signs Temperature 98.4 F 12/14/23 13:42 Pulse Rate 94 H 12/14/23 13:42 Respiratory Rate 15 12/14/23 13:42 Blood Pressure 178/97 H 12/14/23 13:42 Pulse Oximetry 97 12/14/23 13:42 Oxygen Delivery Method Room Air 12/14/23 13:42 Temperature 98.4 F 12/14/23 13:42 Pulse Rate 94 H 12/14/23 13:42 Respiratory Rate 15 12/14/23 13:42 Blood Pressure 178/97 H 12/14/23 13:42 Pulse Oximetry 97 12/14/23 13:42 Oxygen Delivery Method Room Air 12/14/23 13:42 Medical Decision Making MDM Narrative Medical decision making narrative: Patient declined the need for any pain medication in the ER, vital signs are st able, WBC count is normal. Patient sent for CT of the abdomen and pelvis with IV contrast showing a 1.9 cm lesion in the umbilical area with surrounding inflammation consistent with fluid collection versus abscess versus mass. I discussed these results with Dr. Lawrence for general surgery. We will place the patient on Bactrim, Keflex for antibiotic coverage and he was encouraged to use warm compresses to the area. Dr. Lawrence will see him in the office for reevaluation to determine if this may need a procedure to drain it. Return to the ER if symptoms change or worsen. Medical Records Medical records reviewed: Yes I reviewed the patient's medical records Lab Data Lab results reviewed: Yes I reviewed the patient's lab results Labs: Lab Results 12/14/23 Range/Units 13:00 WBC 9.4 (4.0-11.0) 10^3/uL RBC 4.72 (4.70-6.10) 10^6/uL Hgb 11.6 L (14.0-18.0) g/dL Hct 38.0 L (42.0-54.0) % MCV 80.5 (80.0-94.0) fL MCH 24.6 L (25.9-34.0) pg MCHC 30.5 (29.9-35.2) g/dL RDW 16.5 H (11.0-15.0) % Plt Count 314 (150-450) 10^3/uL MPV 12.0 (9.5-13.5) fL Neut % (Auto) 69.4 (43.0-75.0) % Lymph % (Auto) 21.6 (20.5-60.0) % Giles % (Auto) 7.0 (1.7-12.0) % Eos % (Auto) 1.2 (0.9-7.0) % Baso % (Auto) 0.3 (0.2-2.0) % Neut # (Auto) 6.5 (1.4-6.5) 10^3/uL Lymph # (Auto) 2.0 (1.2-3.8) 10^3/uL Giles # (Auto) 0.7 (0.3-0.8) 10^3/uL Eos # (Auto) 0.1 (0.0-0.7) 10^3/uL Baso # (Auto) 0.0 (0.0-0.1) 10^3/uL Abs Immat Gran (auto) 0.05 H (0.00-0.03) 10^3/uL Imm/Tot Granulo (auto) 0.5 (0.0-0.5) % Sodium 134 L (136-145) mmol/L Potassium 4.5 (3.5-5.1) mmol/L Chloride 99 (98-107) mmol/L Carbon Dioxide 28.4 (21.0-32.0) mmol/L Anion Gap 11.1 BUN 16.0 (7.0-18.0) mg/dL Creatinine 1.02 (0.70-1.30) mg/dL Est GFR ( Amer) >60 (>=60) Est GFR (Non-Af Amer) >60 (>=60) BUN/Creatinine Ratio 15.7 Glucose 453 H (74-106) mg/dL Calcium 8.4 L (8.5-10.1) mg/dL Total Bilirubin 0.3 (0.2-1.0) mg/dL AST 9 L (15-37) U/L ALT 17 (16-63) U/L Alkaline Phosphatase 120 H (46-116) U/L Total Protein 6.2 L (6.4-8.2) g/dL Albumin 3.1 L (3.4-5.0) g/dL Globulin 3.1 g/dL Albumin/Globulin Ratio 1.[address] scan - abdomen: Attestation: I have reviewed the pertinent imaging results. Radiologist's impression: ITS Impressions Abdomen/Pelvis CT 12/14/23 13:43 IMPRESSION: 1. Small 1.9 cm lesion versus fluid collection versus abscess along the right margin of the umbilicus with moderate surrounding inflammatory. No intraperitoneal or bowel involvement. I suspect this represents an abscess. Electronically authenticated by: BRUNO BLACK Date: 12/14/2023 15:53 Discharge Plan Discharge Stand Alone Forms: Portal Instructions Chief Complaint: Wound/Laceration Clinical Impression: Umbilical mass Patient Disposition: Home, Self-Care Time of Disposition Decision: 16:04 Condition: Good Prescriptions / Home Meds: New sulfamethoxazole-trimethoprim [Bactrim DS] 800-160 mg tablet 1 tab PO BID 10 Days Qty: 20 0RF cephalexin 500 mg capsule 500 mg PO Q8H 10 Days Qty: 30 0RF No Action atorvastatin 40 mg tablet ipratropium-albuterol 0.5 mg-3 mg(2.5 mg base)/3 mL solution for nebulization INHALATION tizanidine 4 mg tablet valsartan 80 mg tablet quetiapine 100 mg tablet acarbose 100 mg tablet pantoprazole 40 mg tablet,delayed release (DR/EC) PO metformin 1,000 mg tablet ezetimibe 10 mg tablet insulin aspart U-100 [Novolog FlexPen U-100 Insulin] 100 unit/mL (3 mL) insulin pen SUBCUT metoprolol tartrate 25 mg tablet duloxetine 30 mg capsule,delayed release(DR/EC) PO duloxetine 60 mg capsule,delayed release(DR/EC) PO budesonide-formoterol [Symbicort] 160-4.5 mcg/actuation HFA aerosol inhaler INHALATION Ozempic 0.25 mg or 0.5 mg(2 mg/1.5 mL) pen injector SUBCUT Print Language: Citizen Of [place] Additional Instructions: Apply warm compresses, clean umbilical area with alcohol on a Q-Tip twice a day. Finish antibiotics. Dr. Lawrence will see you in the office for follow up. Call tomorrow for an appointment time. Referrals: Bayron Lawrence MD [Physician] - 12/15/23 (Call Dr. Lawrence's office for follow up this week) Physician,Non-Staff, [Primary Care Provider] - 1 week
[2023-12-14 14:08] LABS: Basophils Percent Auto 0.3 % (0.2-2.0); Eosinophils Absolute Auto 0.1 10^3/uL (0.0-0.7); Eosinophils Percent Auto 1.2 % (0.9-7.0); Hemoglobin 11.6 g/dL (14.0-18.0); Immature Granulocytes Abs Auto 0.05 10^3/uL (0.00-0.03); Immature Granulocytes Pct Auto 0.5 % (0.0-0.5); Lymphocytes Percent Auto 21.6 % (20.5-60.0); Mean Corpuscular HGB Conc 30.5 g/dL (29.9-35.2); Mean Corpuscular Hemoglobin 24.6 pg (25.9-34.0); Mean Corpuscular Volume 80.5 fL (80.0-94.0); Monocytes Absolute Auto 0.7 10^3/uL (0.3-0.8); Neutrophils Absolute Auto 6.5 10^3/uL (1.4-6.5); Neutrophils Percent Auto 69.4 % (43.0-75.0); Platelet Count 314 10^3/uL (150-450); Red Blood Count 4.72 10^6/uL (4.70-6.10); Red Cell Distribution Width 16.5 % (11.0-15.0); White Blood Count 9.4 10^3/uL (4.0-11.0)
[2023-12-14 14:20] LABS: Alanine Aminotransferase 17 U/L (16-63); Albumin Level 3.1 g/dL (3.4-5.0); Alkaline Phosphatase 120 U/L (46-116); Anion Gap 11.1; Aspartate Amino Transferase 9 U/L (15-37); BUN Creatinine Ratio 15.7; Bilirubin Total 0.3 mg/dL (0.2-1.0); Calcium 8.4 mg/dL (8.5-10.1); Carbon Dioxide 28.4 mmol/L (21.0-32.0); Chloride 99 mmol/L (98-107); Estimated GFR (African America >60 (>=60); Estimated GFR (Non-African Ame >60 (>=60); Globulin 3.1 g/dL; Glucose 453 mg/dL (74-106); Potassium 4.5 mmol/L (3.5-5.1); Sodium 134 mmol/L (136-145); Total Protein 6.2 g/dL (6.4-8.2)
== END 2023-12-14 17:45 | disposition home or self-care (01) ==
PROVIDERS: Physician Assistant; Emergency Provider Emergency Medicine Emergency Medical Services
DX: R19.05 Periumbilic swelling, mass or lump (principal); Z79.899 Other long term (current) drug therapy; Z79.84 Long term (current) use of oral hypoglycemic drugs; Z79.4 Long term (current) use of insulin
CPT/HCPCS: 36415; 74177; 80053; 85025; 99285; Q9967

== ENCOUNTER 2024-04-11 13:03 | Observation (INO) | payer MEDICARE, MEDICAID, SELFPAY ==
[2024-04-11] VITALS (28 sets, daily range): BP systolic 140–179; BP diastolic 66–100; PULSE 101–123; TEMP 36.8–36.9; O2SAT 92–99; BMI 31.1
--- NOTE | 2024-04-11 13:23 | ECG_ITS ---
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
--- NOTE | 2024-04-11 13:23 | XR_ITS ---
The [address] [address] Patient Name: DALILA MCDOWELL MRN: [id number] date: 1955 Sex: M Assigned Patient Location: ER Current Patient Location: ER Accession/Order Number: [id number] Exam Date: 04/11/2024 14:45 Report Date: 04/11/2024 15:28 At the request of: MARCO A BOTELLO Procedure: XR chest 1V EXAMINATION: XR chest 1V HISTORY: Confusion COMPARISON: XR chest 04/03/2023 FINDINGS: LUNGS: No significant pulmonary parenchymal abnormalities. VASCULATURE: No increased pulmonary vasculature. PLEURA: No pneumothorax, effusion, or pleural thickening. CARDIAC: No cardiomegaly or cardiac silhouette abnormality. MEDIASTINUM: No visible mass or adenopathy. BONES: No fracture or visible bone lesion. OTHER: Negative. XR/XR chest 1V IMPRESSION: 1. No acute cardiopulmonary process. Electronically authenticated by: BRUNO BLACK Date: 04/11/2024 15:28
--- NOTE | 2024-04-11 13:23 | CT_ITS ---
The [address] [address] Patient Name: DALILA MCDOWELL MRN: [id number] date: 1955 Sex: M Assigned Patient Location: ER Current Patient Location: ER Accession/Order Number: [id number] Exam Date: 04/11/2024 14:45 Report Date: 04/11/2024 15:27 At the request of: MARCO A BOTELLO Procedure: CT head/brain wo con EXAMINATION: CT head/brain wo con HISTORY: Confusion ; recent fall COMPARISON: CT head 03/15/2023 TECHNIQUE: Axial CT images were obtained without IV contrast. Dose reduction techniques were achieved by using automated exposure control and/or adjustment of mA and/or kV according to patient size and/or use of iterative reconstruction technique. FINDINGS: BRAIN: Small area of encephalomalacic changes within right and left occipital lobes and left cerebellum. No hemorrhage, mass, mass effect. No CT evidence of acute ischemia. CSF SPACES: No hydrocephalus, subarachnoid hemorrhage, or mass. Appropriate for age. SKULL: No fracture, mass, or other significant visible lesion. SINUSES: Chronic mucocele within right maxillary sinus. ORBITS: No appreciable abnormality on the limited views. OTHER: Negative CT/CT head/brain wo con IMPRESSION: 1. No acute cranial hemorrhage or appreciable acute abnormality. 2. Stable changes consistent with sequela of remote infarction(s) and age-related changes. 3. Right maxillary chronic sinusitis. 4. No fracture the calvarium or scalp hematoma. Electronically authenticated by: BRUNO BLACK Date: 04/11/2024 15:27
--- NOTE | 2024-04-11 13:24 | XR_ITS ---
The [address] [address] Patient Name: DALILA MCDOWELL MRN: [id number] date: 1955 Sex: M Assigned Patient Location: ER Current Patient Location: ER Accession/Order Number: [id number] Exam Date: 04/11/2024 14:45 Report Date: 04/11/2024 15:29 At the request of: MARCO A BOTELLO Procedure: XR tibia fibula RT 2V PROCEDURE: XR tibia fibula RT 2V HISTORY: Right leg pain, hx BKA, fall two days ago COMPARISON: None. FINDINGS: BONES:Prior amputation at level of mid diaphysis of the right tibia and fibula. No fracture, cortical destruction, or periosteal reaction. SOFT TISSUES:No visible soft tissue swelling. EFFUSION:None visible. OTHER: Negative. XR/XR tibia fibula RT 2V IMPRESSION: 1. Prior melus-bjt-[id number] amputation. 2. No appreciable acute or suspicious abnormality. Electronically authenticated by: BRUNO BLACK Date: 04/11/2024 15:29
--- NOTE | 2024-04-11 13:25 | ED_ITS ---
HPI HPI - General Adult General Chief complaint: Altered Mental Status Stated complaint: CONFUSION Time Seen by Provider: 04/11/24 13:19 Source: patient Mode of arrival: ambulance History of Present Illness HPI narrative: Patient is a 68-year-old male who presents to the emergency department by ambulance from his residence at [place] where he lives for evaluation of confusion and possible sepsis. It was requested by the patient's family that he come to the ER and be evaluated. Patient apparently had a fall at his residence several days ago, family was upset that they were not immediately notified and wanted the patient evaluated today because they believe he is confused and are concerned about a scab to the right lower leg at the previous site of a below the knee amputation. The nurse practitioner at the facility called report stating that they were going to get x-rays and start the patient on antibiotics which she felt they could handle at the facility, but family insisted he be transported. Patient is alert and oriented to person, place, time. He remembers falling but denies hitting his head. He reports some pain at the stump of his below the knee amputation. He has not had any fevers or vomiting. He has no other complaints of pain, chest pain, shortness of breath. Related Data Home Medications ?Medication ?Instructions ?Recorded ?Confirmed acarbose 100 mg tablet mg 03/15/23 atorvastatin 40 mg tablet mg 03/15/23 budesonide-formoterol HFA 160 inhalation 03/15/23 mcg-4.5 mcg/actuation aerosol inhaler (Symbicort) duloxetine 30 mg capsule,delayed mg PO 03/15/23 release duloxetine 60 mg capsule,delayed mg PO 03/15/23 release ezetimibe 10 mg tablet mg 03/15/23 insulin aspart U-100 100 unit/mL subcut 03/15/23 (3 mL) subcutaneous pen (Novolog FlexPen U-100 Insulin aspart) ipratropium 0.5 mg-albuterol 3 mg ml inhalation 03/15/23 (2.5 mg base)/3 mL nebulization soln metformin 1,000 mg tablet mg 03/15/23 metoprolol tartrate 25 mg tablet mg 03/15/23 pantoprazole 40 mg tablet,delayed mg PO 03/15/23 release quetiapine 100 mg tablet mg 03/15/23 semaglutide 0.25 mg or 0.5 mg (2 mg subcut 03/15/23 mg/1.5 mL) subcutaneous pen injector (Ozempic) tizanidine 4 mg tablet mg 03/15/23 valsartan 80 mg tablet mg 03/15/23 Previous Rx's ?Medication ?Instructions ?Recorded cephalexin 500 mg capsule 500 mg PO Q8H 10 days #30 caps 12/14/23 sulfamethoxazole 800 1 tab PO BID 10 days #20 tabs 12/14/23 mg-trimethoprim 160 mg tablet (Bactrim DS) Allergies Allergy/AdvReac Type Severity Reaction Status Date / Time No Known Drug Allergies Allergy Verified 03/15/23 21:43 Opioid HPI Opioid Management Most Recent Opioid Data: Last Pain Scale 8 12/14/23 14:17 Review of Systems ROS Constitutional Denies: fever or chills Ears, nose, mouth, and throat Denies: throat pain or nasal congestion Cardiovascular Denies: chest pain Respiratory Denies: shortness of breath Gastrointestinal Denies: abdominal pain, nausea or vomiting Musculoskeletal Reports: extremity pain; Denies: back pain or neck pain Integumentary/Breast Reports: rash, redness, skin tenderness and skin swelling Hematologic/Lymphatic Denies: easy bruising or easy bleeding Exam Narrative Exam Narrative: Gen.: Awake, alert, in no distress Head: Normocephalic, atraumatic ENT: Moist mucous membranes Respiratory: No respiratory distress, lungs clear bilaterally Cardio: Regular rate and rhythm Gastrointestinal: Abdomen is soft, nondistended and nontender to palpation Extremities: Moves extremities equally, small scabbed area to the right stump at the distal aspect of the leg. Minimal surrounding erythema, no palpable abscess or drainage. No red streaking of the extremities. Left forearm with a mildly indurated open area. No active drainage. No red streaking. Psych: Normal mood and affect Neuro: No focal neuro deficit Skin: Warm, dry Constitutional Vital Signs, click to edit/add: Last Vital Signs Temp 98.2 F 04/11/24 13:04 Pulse 104 H 04/11/24 13:04 Resp 18 04/11/24 13:04 BP 179/94 H 04/11/24 13:04 Pulse Ox 97 04/11/24 13:04 O2 Del Method Room Air 04/11/24 13:04 Course Vital Signs Vital signs: Vital Signs Temperature 98.2 F 04/11/24 13:04 Pulse Rate 104 H 04/11/24 13:04 Respiratory Rate 18 04/11/24 13:04 Blood Pressure 179/94 H 04/11/24 13:04 Pulse Oximetry 97 04/11/24 13:04 Oxygen Delivery Method Room Air 04/11/24 13:04 Temperature 98.2 F 04/11/24 13:04 Pulse Rate 104 H 04/11/24 13:04 Respiratory Rate 18 04/11/24 13:04 Blood Pressure 179/94 H 04/11/24 13:04 Pulse Oximetry 97 04/11/24 13:04 Oxygen Delivery Method Room Air 04/11/24 13:04 Medical Decision Making MDM Narrative Medical decision making narrative: Patient sent for CT of the brain, chest x-ray, x-ray of the right lower leg. No evidence of osteomyelitis or other acute abnormalities. Patient with leukocytosis and elevated lactic acid. He was treated with Zosyn and vancomycin for coverage of the scab to the right lower leg and abscess to the left forearm. No indication for incision and drainage. Urine specimen obtained. Blood cultures obtained and the patient will be admitted for early sepsis. Admitted to the hospitalist service. Stable at time of admission. SUPERVISED APC VISIT, PHYSICIAN ATTESTATION: Based on the medical record the care appears appropriate. ? Medical Records Medical records reviewed: Yes I reviewed the patient's medical records Lab Data Lab results reviewed: Yes I reviewed the patient's lab results Labs: Lab Results 04/11/24 04/11/24 Range/Units 13:18 15:30 WBC 18.6 H (4.0-11.0) 10^3/uL RBC 5.20 (4.70-6.10) 10^6/uL Hgb 12.8 L (14.0-18.0) g/dL Hct 41.8 L (42.0-54.0) % MCV 80.4 (80.0-94.0) fL MCH 24.6 L (25.9-34.0) pg MCHC 30.6 (29.9-35.2) g/dL RDW 18.4 H (11.0-15.0) % Plt Count 313 (150-450) 10^3/uL MPV 12.3 (9.5-13.5) fL Seg Neuts % (Manual) 77.0 H (43.0-75.0) Lymphocytes % (Manual) 14.0 L (20.5-60.0) % Monocytes % (Manual) 9.0 (1.7-12.0) % Eosinophils % (Manual) 0.0 L (0.9-7.0) % Basophils % (Manual) 0.0 L (0.2-2.0) % Neutrophils # (Manual) 14.32 H (1.4-6.5) 10^3/uL Lymphocytes # (Manual) 2.60 (1.20-3.80) 10^3/uL Monocytes # (Manual) 1.67 H (0.30-0.80) 10^3/uL Eosinophils # (Manual) 0.00 (0.00-0.70) 10^3/uL Basophils # (Manual) 0.00 (0.00-0.10) 10^3/uL Anisocytosis 1+ Ovalocytes 1+ ESR 123 H (<=20) mm/hr PT 10.7 (9.0-11.6) sec INR 1.01 VBG pH 7.374 (7.330-7.430) VBG pCO2 49.1 (40.0-52.0) mmHg Sodium 136 (136-145) mmol/L Potassium 3.8 (3.5-5.1) mmol/L Chloride 100 (98-107) mmol/L Carbon Dioxide 27.5 (21.0-32.0) mmol/L Anion Gap 12.3 BUN 12.0 (7.0-18.0) mg/dL Creatinine 0.88 (0.70-1.30) mg/dL Est GFR ( Amer) >60 (>=60) Est GFR (Non-Af Amer) >60 (>=60) BUN/Creatinine Ratio 13.6 Glucose 184 H (74-106) mg/dL Lactate 2.1 H (0.4-2.0) mmol/L Calcium 9.1 (8.5-10.1) mg/dL Total Bilirubin 0.7 (0.2-1.0) mg/dL AST 9 L (15-37) U/L ALT 18 (16-63) U/L Alkaline Phosphatase 132 H (46-116) U/L Troponin I High Sens 10.1 (4.0-76.1) pg/mL C-Reactive Protein 20.47 H (<=0.50) mg/dL Total Protein 7.6 (6.4-8.2) g/dL Albumin 3.3 L (3.4-5.0) g/dL Globulin 4.3 g/dL Albumin/Globulin Ratio 0.8 TSH 1.000 (0.358-3.740) uIU/mL Urine Color Yellow (YELLOW) Urine Clarity Clear (CLEAR) Urine pH 6.0 (5.0-9.0) Ur Specific [place] >=1.030 A (1.005-1.025) Urine Protein 30 A (NEG/TRACE) mg/dL Urine Glucose (UA) >=1000 A (NEGATIVE) mg/dL Urine Ketones Trace A (NEGATIVE) mg/dL Urine Occult Blood Large A (NEGATIVE) Urine Nitrite Negative (NEGATIVE) Urine Bilirubin Negative (NEGATIVE) Urine Urobilinogen 1.0 (0.2-1.0) EU/dL Ur Leukocyte Esterase Negative (NEGATIVE) Imaging Data CT scan - head: Attestation: I have reviewed the pertinent imaging results. Radiologist's impression: ITS Impressions Chest X-Ray 04/11/24 13:23 IMPRESSION: 1. No acute cardiopulmonary process. Electronically authenticated by: BRUNO BLACK Date: 04/11/2024 15:[address] 04/11/24 13:23 IMPRESSION: 1. No acute cranial hemorrhage or appreciable acute abnormality. 2. Stable changes consistent with sequela of remote infarction(s) and age-related changes. 3. Right maxillary chronic sinusitis. 4. No fracture the calvarium or scalp hematoma. Electronically authenticated by: BRUNO BLACK Date: 04/11/2024 15:27 Tibia/Fibula X-Ray 04/11/24 13:24 IMPRESSION: 1. Prior trgpb-cwy-kzob amputation. 2. No appreciable acute or suspicious abnormality. Electronically authenticated by: BRUNO BLACK Date: 04/11/2024 15:29 ECG Data Attestation: I personally reviewed and interpreted this ECG as follows: (Sinus tachycardia at a rate of 105, right bundle branch block with no acute ST elevation or ectopy. EKG reviewed by attending physician) Discharge Plan Discharge Chief Complaint: Altered Mental Status Patient Disposition: Admitted as Observation Time of Disposition Decision: 16:12 Prescriptions / Home Meds: No Action atorvastatin 40 mg tablet ipratropium-albuterol 0.5 mg-3 mg(2.5 mg base)/3 mL solution for nebulization INHALATION tizanidine 4 mg tablet valsartan 80 mg tablet quetiapine 100 mg tablet acarbose 100 mg tablet pantoprazole 40 mg tablet,delayed release (DR/EC) PO metformin 1,000 mg tablet ezetimibe 10 mg tablet insulin aspart U-100 [Novolog FlexPen U-100 Insulin] 100 unit/mL (3 mL) insulin pen SUBCUT metoprolol tartrate 25 mg tablet duloxetine 30 mg capsule,delayed release(DR/EC) PO duloxetine 60 mg capsule,delayed release(DR/EC) PO budesonide-formoterol [Symbicort] 160-4.5 mcg/actuation HFA aerosol inhaler INHALATION Ozempic 0.25 mg or 0.5 mg(2 mg/1.5 mL) pen injector SUBCUT sulfamethoxazole-trimethoprim [Bactrim DS] 800-160 mg tablet 1 tab PO BID 10 Days Qty: 20 0RF cephalexin 500 mg capsule 500 mg PO Q8H 10 Days Qty: 30 0RF Print Language: Kiswahili Referrals: Physician,Non-Staff, MD [Primary Care Provider] - 1 week
[2024-04-11 13:51] LABS: Hematocrit 41.8 % (42.0-54.0); Hemoglobin 12.8 g/dL (14.0-18.0); Mean Corpuscular HGB Conc 30.6 g/dL (29.9-35.2); Mean Corpuscular Hemoglobin 24.6 pg (25.9-34.0); Mean Corpuscular Volume 80.4 fL (80.0-94.0); Mean Platelet Volume 12.3 fL (9.5-13.5); Platelet Count 313 10^3/uL (150-450); Red Cell Distribution Width 18.4 % (11.0-15.0); White Blood Count 18.6 10^3/uL (4.0-11.0)
[2024-04-11 13:52] LABS: PCO2 VBG 49.1 mmHg (40.0-52.0); pH VBG 7.374 (7.330-7.430)
[2024-04-11 14:01] LABS: Erythrocyte Sedimentation Rate 123 mm/hr (<=20)
[2024-04-11] MEDS: 0.9 % SODIUM CHLORIDE 1,000 ML 999 ML IV (14:01)
[2024-04-11 14:06] LABS: INR 1.01; Prothrombin Time 10.7 sec (9.0-11.6)
[2024-04-11 14:14] LABS: Lactate/Lactic Acid 2.1 mmol/L (0.4-2.0)
[2024-04-11 14:16] LABS: Segmented Neut Absolute Manual 14.32 10^3/uL (1.4-6.5)
[2024-04-11 14:17] LABS: Monocytes Absolute Manual 1.67 10^3/uL (0.30-0.80)
[2024-04-11 14:18] LABS: Ovalocytes 1+
[2024-04-11 14:20] LABS: Anisocytosis 1+
[2024-04-11 14:21] LABS: Alanine Aminotransferase 18 U/L (16-63); Albumin Globulin Ratio 0.8; Albumin Level 3.3 g/dL (3.4-5.0); Alkaline Phosphatase 132 U/L (46-116); Anion Gap 12.3; Aspartate Amino Transferase 9 U/L (15-37); BUN Creatinine Ratio 13.6; Bilirubin Total 0.7 mg/dL (0.2-1.0); C Reactive Protein 20.47 mg/dL (<=0.50); Calcium 9.1 mg/dL (8.5-10.1); Carbon Dioxide 27.5 mmol/L (21.0-32.0); Chloride 100 mmol/L (98-107); Estimated GFR (African America >60 (>=60); Estimated GFR (Non-African Ame >60 (>=60); Globulin 4.3 g/dL; Glucose 184 mg/dL (74-106); Potassium 3.8 mmol/L (3.5-5.1); Sodium 136 mmol/L (136-145); Total Protein 7.6 g/dL (6.4-8.2); Troponin I High Sensitivity 10.1 pg/mL (4.0-76.1)
[2024-04-11] MEDS: PIPERACILLIN SODIUM/TAZOBACTAM 4.5 GM in 0.9 % SODIUM CHLORIDE 50 ML IV (15:13)
[2024-04-11 15:42] LABS: Bilirubin Urine NEGATIVE (NEGATIVE); Blood Urine LARGE (NEGATIVE); Clarity Urine CLEAR (CLEAR); Color Urine YELLOW (YELLOW); Glucose Urine UA >=1000 mg/dL (NEGATIVE); Ketones Urine TRACE mg/dL (NEGATIVE); Leukocyte Esterase Urine NEGATIVE (NEGATIVE); Nitrite Urine NEGATIVE (NEGATIVE); Protein Urine 30 mg/dL (NEG/TRACE); Specific Gravity Urine >=1.030 (1.005-1.025)
[2024-04-11 15:46] LABS: Urine Microscopic Indicated YES
[2024-04-11] MEDS: VANCOMYCIN HCL 1,000 MG in 0.9 % SODIUM CHLORIDE 500 ML 250 MG IV (15:57)
[2024-04-11 15:59] LABS: Mucus Urine TRACE (NONE SEEN); RBC Urine >100 #/HPF (0-2); WBC Urine 0-2 #/HPF (NONE SEEN)
[2024-04-11 16:00] LABS: Cast Seen? NONE SEEN #/LPF (NONE SEEN); Crystals Seen? None Seen #/HPF (None Seen); Squamous Epithelial Cell Urine RARE #/LPF (NONE/RARE)
[2024-04-11 16:01] LABS: Bacteria Urine TRACE #/HPF (NONE SEEN)
[2024-04-11 16:02] LABS: Urine Culture Indicated NO
[2024-04-11 17:24] LABS: Glucometer 232 mg/dL (74-106)
[2024-04-11 17:33] LABS: Lactate/Lactic Acid 1.8 mmol/L (0.4-2.0)
[2024-04-11] MEDS: LACTATED RINGER'S SOLUTION 1,000 ML 125 ML IV (18:16)
[2024-04-11] MEDS: ENOXAPARIN SODIUM 40 MG/0.4 ML SYRINGE SUBQ (18:17)
[2024-04-11] MEDS: OXYCODONE HCL 5 MG TABLET PO (20:00)
[2024-04-11] MEDS: VANCOMYCIN HCL 1,000 MG in 0.9 % SODIUM CHLORIDE 250 ML 250 MG IV (20:27)
[2024-04-11 21:41] LABS: Glucometer 312 mg/dL (74-106)
[2024-04-11] MEDS: INSULIN ASPART 300 UNIT/3 ML PEN SUBQ (21:43)
[2024-04-11] MEDS: PIPERACILLIN SODIUM/TAZOBACTAM 3.375 GM in 0.9 % SODIUM CHLORIDE 50 ML IV (21:45)
--- NOTE | 2024-04-11 23:25 | PC.NURSE ---
Entered patients room and telemetry was removed as well as IV pulled out and gown off. When questioned patient replied I dont know why I did it
[2024-04-12] VITALS (12 sets, daily range): BP systolic 121–161; BP diastolic 57–79; PULSE 77–121; TEMP 36.5–37.7; O2SAT 90–94
--- NOTE | 2024-04-12 00:43 | PC.NURSE ---
22g iv inserted to left wrist area
--- NOTE | 2024-04-12 02:19 | PC.NURSE ---
Patient removed IV, gown, and telemetry leads
[2024-04-12] MEDS: OXYCODONE HCL 5 MG TABLET PO ×2 (02:29→17:30)
[2024-04-12] MEDS: VANCOMYCIN HCL 1,000 MG in 0.9 % SODIUM CHLORIDE 250 ML 250 MG IV ×3 (05:17→21:21)
[2024-04-12 06:27] LABS: Basophils Percent Auto 0.2 % (0.2-2.0); Eosinophils Percent Auto 0.1 % (0.9-7.0); Hematocrit 34.5 % (42.0-54.0); Hemoglobin 10.7 g/dL (14.0-18.0); Immature Granulocytes Abs Auto 0.08 10^3/uL (0.00-0.03); Immature Granulocytes Pct Auto 0.4 % (0.0-0.5); Lymphocytes Absolute Auto 1.6 10^3/uL (1.2-3.8); Lymphocytes Percent Auto 8.7 % (20.5-60.0); Mean Corpuscular Hemoglobin 24.9 pg (25.9-34.0); Mean Corpuscular Volume 80.2 fL (80.0-94.0); Mean Platelet Volume 12.9 fL (9.5-13.5); Monocytes Absolute Auto 1.5 10^3/uL (0.3-0.8); Monocytes Percent Auto 8.2 % (1.7-12.0); Neutrophils Absolute Auto 15.3 10^3/uL (1.4-6.5); Neutrophils Percent Auto 82.4 % (43.0-75.0); Platelet Count 240 10^3/uL (150-450); Red Cell Distribution Width 18.3 % (11.0-15.0); White Blood Count 18.6 10^3/uL (4.0-11.0)
[2024-04-12 06:36] LABS: Alanine Aminotransferase 16 U/L (16-63); Albumin Globulin Ratio 0.8; Albumin Level 2.7 g/dL (3.4-5.0); Alkaline Phosphatase 101 U/L (46-116); Anion Gap 15.3; Aspartate Amino Transferase 9 U/L (15-37); BUN Creatinine Ratio 16.7; Bilirubin Total 0.7 mg/dL (0.2-1.0); Calcium 8.2 mg/dL (8.5-10.1); Carbon Dioxide 24.5 mmol/L (21.0-32.0); Chloride 101 mmol/L (98-107); Estimated GFR (African America >60 (>=60); Estimated GFR (Non-African Ame >60 (>=60); Globulin 3.4 g/dL; Glucose 221 mg/dL (74-106); Potassium 3.8 mmol/L (3.5-5.1); Sodium 137 mmol/L (136-145); Total Protein 6.1 g/dL (6.4-8.2)
[2024-04-12] MEDS: INSULIN ASPART 300 UNIT/3 ML PEN SUBQ ×4 (08:06→21:28)
[2024-04-12] MEDS: PIPERACILLIN SODIUM/TAZOBACTAM 3.375 GM in 0.9 % SODIUM CHLORIDE 50 ML IV ×3 (09:16→22:29)
--- NOTE | 2024-04-12 10:34 | US_ITS ---
The [address] [address] Patient Name: DALILA MCDOWELL MRN: [id number] date: 1955 Sex: M Assigned Patient Location: MS Current Patient Location: MS Accession/Order Number: [id number] Exam Date: 04/12/2024 10:40 Report Date: 04/12/2024 11:28 At the request of: SHAIKH JASON Procedure: US venous doppler LE RT Ultrasound venous duplex scan right lower extremity CLINICAL: Bilateral lower leg amputation, redness and pain to right leg stump. TECHNIQUE: Knight-scale, color Doppler and Duplex examination of the right lower extremity was performed with and without provocative maneuvers. FINDINGS: Comparison: None. Sonographic examination of the right lower extremity deep venous system to include the common femoral, superficial femoral and popliteal veins, demonstrates normal compressibility, color-flow, respiratory variation, and augmentation. The origin of the greater saphenous vein demonstrates normal compression, and there is normal color-flow in the proximal profunda femoral vein. There is compressibility and color flow in the proximal peroneal, posterior tibial, and anterior tibial veins. Nonspecific subcutaneous edema of the calf. There is large amount of atherosclerotic plaque and suspected hemodynamically significant stenosis in the right iliac artery. US/US venous doppler LE RT IMPRESSION: 1. No deep venous thrombosis in the right lower extremity. 2. Nonspecific subcutaneous edema of right calf. 3. Significant atherosclerotic plaque and suspected hemodynamically significant stenosis of the right iliac artery, not otherwise evaluated. Electronically authenticated by: HUGO LOPEZ Date: 04/12/2024 11:28
--- NOTE | 2024-04-12 10:47 | CM.NOTE ---
Rounds made with Dr. Herrera. Bayron explains what brought him to the hospital. Dr. Herrera reviews plan of care and Mr. Kevin in agreement.
--- NOTE | 2024-04-12 11:17 | PM.HP ---
HPI H&P: HPI History of Present Illness Chief complaint: CONFUSION ALLTERED MENTAL STATUS Narrative: 68-year-old male with prior history of peripheral vascular disease resulting in bilateral below the knee amputation, currently resides in a custodial was brought in by his family for not acting like himself. Family was concerned that patient may have underlying sepsis and wanted to be evaluated for it. Workup in ER revealed right lower extremity cellulitis at his stump, along with leukocytosis and initial workup being consistent with sepsis. Patient was admitted overnight started on IV fluids, IV vancomycin and Zosyn for his cellulitis. He also had CT head that did not show any acute intracranial pathology. Upon my assessment today, he seems to be at his baseline mental status now and is answering questions appropriately and does not appear to be confused. He was initially admitted as observation but has not shown any improvement clinically for cellulitis/leukocytosis and for that reason, I changed him to inpatient as I anticipate that he will require close inpatient monitoring, workup and treatment for sepsis secondary to cellulitis. Opioid HPI Opioid Management Most Recent Pain and Opioid Data: Last Pain Scale 0 04/12/24 11:17 Last Pain Assessment 04/12/24 11:17 Last MAR Pain Assessment 04/12/24 04:01 Last ORT Total Score 3 04/11/24 17:12 Last ORT Risk Category Low Risk 04/11/24 17:12 Review of Systems ROS Status of ROS 10 or more systems reviewed and unremarkable except as noted in history and below [facility] Medical History (Updated 04/12/24 @ 11:29 by Shaikh Javier MD) Complete below-knee amputation ?S88.119A - Complete traumatic amputation at level between knee and ankle, unspecified lower leg, initial encounter (ICD-10) PVD (peripheral vascular disease) ?I73.9 - Peripheral vascular disease, unspecified (ICD-10) HTN (hypertension) ?I10 - Essential (primary) hypertension (ICD-10) Below knee amputation ?S88.119A - Complete traumatic amputation at level between knee and ankle, unspecified lower leg, initial encounter (ICD-10) Diabetes ?E11.9 - Type 2 diabetes mellitus without complications (ICD-10) Family History (Updated 04/11/24 @ 17:39 by Bryanna Caban LPN) Other Family history of stroke Social History (Updated 04/11/24 @ 17:41 by Bryanna Caban LPN) Within the past year, how often did you have a drink containing alcohol: never Within the past year, how often did you have six or more drinks on one occasion: never Score interpretation: A score less than 4 is consistent with normal alcohol consumption. Smoking status: Current every day smoker Second hand tobacco smoke exposure: No Non-prescribed substance use: denies use Previous occupational history: retired Known occupational exposures/hazards: No Do you want help with school or training: No Are you now , , , , never or living with a partner: refused to answer In a typical week, how many times do you talk on the telephone with family, friends, or neighbors: once per week How often do you get together with friends or relatives: once per week How often do you attend caodaism or confucianism services: 4 or more times per year Do you belong to any clubs or organizations such as caodaism groups unions, [employer] or athletic groups, or school groups: no Total score: 1 Score interpretation: A score of less than or equal to 1 indicates the most socially isolated. Little interest or pleasure in doing things: not at all Feeling down, depressed, or hopeless: not at all Feel stressed/tense/nervous/anxious/difficulty sleeping: not at all Due to disability, difficulty making decisions: No Meds Home Medications and Allergies Home Medications ?Medication ?Instructions ?Recorded ?Confirmed ?Type atorvastatin 40 mg tablet 40 mg PO .QHS 03/15/23 04/11/24 History budesonide-formoterol HFA 160 2 puff inhalation Q12H 03/15/23 04/11/24 History mcg-4.5 mcg/actuation aerosol inhaler (Symbicort) duloxetine 60 mg capsule,delayed 60 mg PO QAM 03/15/23 04/11/24 History release ezetimibe 10 mg tablet 5 mg PO .QD 03/15/23 04/11/24 History insulin aspart U-100 100 unit/mL 1 sliding scale dose subcut QID 03/15/23 04/11/24 History (3 mL) subcutaneous pen (Novolog FlexPen U-100 Insulin aspart) ipratropium 0.5 mg-albuterol 3 mg 3 ml inhalation Q6H PRN shortness 03/15/23 04/11/24 History (2.5 mg base)/3 mL nebulization of breath or wheezing soln metoprolol tartrate 25 mg tablet 25 mg PO Q12H 03/15/23 04/11/24 History quetiapine 100 mg tablet 100 mg PO .QHS 03/15/23 04/11/24 History semaglutide 0.25 mg or 0.5 mg (2 0.25 mg subcut QWEEK 03/15/23 04/11/24 History mg/1.5 mL) subcutaneous pen injector (Ozempic) tizanidine 4 mg tablet 4 mg PO .QHS PRN muscle spasticity 03/15/23 04/11/24 History valsartan 80 mg tablet 80 mg PO .QD 03/15/23 04/11/24 History Allergies Allergy/AdvReac Type Severity Reaction Status Date / Time No Known Drug Allergies Allergy Verified 03/15/23 21:43 Exam Constitutional Vital Signs, click to edit/add: Last Vital Signs Temp 98.0 F 04/12/24 08:09 Pulse 99 H 04/12/24 08:09 Resp 18 04/12/24 08:09 BP 142/77 H 04/12/24 08:09 Pulse Ox 93 L 04/12/24 08:09 O2 Del Method Room Air 04/12/24 08:09 Documenting provider has reviewed patient's vital signs: yes Common normals: no apparent distress and oriented x3 General appearance: cooperative HENMT Common normals: normocephalic and head/scalp atraumatic Head and scalp: normocephalic and atraumatic Eye Other: right upper eye lid stye Respiratory Common normals: normal respiratory effort and clear to auscultation bilaterally Effort & inspection: able to speak in complete sentences Auscultation: clear to auscultation bilaterally Cardio Common normals: regular rate, S1 normal heart sound and S2 normal heart sound Rate: regular rate Heart sounds: S1 normal and S2 normal GI Common normals: Normal to inspection, nondistended, normoactive bowel sounds present, soft to palpation, non-tender and no hepatosplenomegaly Other: umbilical hernia Extremity Other: b/l BKA. Right LE - edema/erythema noted along stump and appearance seems c/w cellulitis Neuro Common normals: oriented x3, moves all extremities and no focal motor deficits Psych Common normals: mental status grossly normal, denies hallucinations, denies homicidal ideation and denies suicidal ideation Results Labs Labs: Short CBC 04/11/24 04/12/24 Range/Units 13:18 05:21 WBC 18.6 H 18.6 H (4.0-11.0) 10^3/uL Hgb 12.8 L 10.7 L (14.0-18.0) g/dL Hct 41.8 L 34.5 L (42.0-54.0) % Plt Count 313 240 (150-450) 10^3/uL BMP 04/11/24 04/12/24 13:18 05:21 Sodium 136 137 Potassium 3.8 3.8 Chloride 100 101 Carbon Dioxide 27.5 24.5 BUN 12.0 14.0 Creatinine 0.88 0.84 Glucose 184 H 221 H Calcium 9.1 8.2 L Liver Function 04/11/24 04/12/24 Range/Units 13:18 05:21 Total Bilirubin 0.7 0.7 (0.2-1.0) mg/dL AST 9 L 9 L (15-37) U/L ALT 18 16 (16-63) U/L Alkaline Phosphatase 132 H 101 (46-116) U/L Albumin 3.3 L 2.7 L (3.4-5.0) g/dL Urine 04/11/24 Range/Units 15:30 Urine Color Yellow (YELLOW) Urine Clarity Clear (CLEAR) Urine pH 6.0 (5.0-9.0) Ur Specific [place] >=1.030 A (1.005-1.025) Urine Protein 30 A (NEG/TRACE) mg/dL Urine Glucose (UA) >=1000 A (NEGATIVE) mg/dL ABG ABG results: 04/11/24 13:18 VBG pH 7.374 VBG pCO2 49.1 Assessment and Plan Assessment and Plan (1) Sepsis: Assessment and Plan: SIRS (HR> 110, WBC 18K), Qsofa (Altered mental status, RR > 22), source of infection is cellulitis On IVF, C/w vancomycin/zosyn. No improvement in leukocytosis or skin involvement (still has considerable edema/erythema/pain) Will order US to r/o abscess/deep tissue involvement. Qualifiers: Sepsis type: sepsis due to unspecified organism Severe sepsis acute organ dysfunction type: encephalopathy Severe sepsis shock status: without septic shock Sepsis acute organ dysfunction status: with acute organ dysfunction Qualified Code(s): A41.9 - Sepsis, unspecified organism; R65.20 - Severe sepsis without septic shock; G93.41 - Metabolic encephalopathy (2) Cellulitis: Assessment and Plan: RLE cellulitis with prior hx of PVD and T2DM, at high risk of treatment failure considering he required amputation previously. No improvement noted with overnight IV abx therapy. Will get an US to ensure there is no underlying DVT/abscess. Qualifiers: Site of cellulitis: extremity Site of cellulitis of extremity: lower extremity Laterality: right Qualified Code(s): L03.115 - Cellulitis of right lower limb (3) Altered mental status: Assessment and Plan: Due to sepsis/cellulitis. back to his baseline mental status. Monitor. Qualifiers: Altered mental status type: disorientation Qualified Code(s): R41.0 - Disorientation, unspecified (4) PVD (peripheral vascular disease): Assessment and Plan: C/w statin. (5) HTN (hypertension): Assessment and Plan: BP slightly above goal. C/w home medications. IV hydralazine as needed. monitor. Qualifiers: Hypertension type: primary hypertension Qualified Code(s): I10 - Essential (primary) hypertension (6) Diabetes: Assessment and Plan: SSI while inpatient. Blood glucose above goal, added levemir. Monitor blood glucose closely. 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
[2024-04-12 11:18] LABS: Glucometer 278 mg/dL (74-106)
[2024-04-12] MEDS: LOSARTAN POTASSIUM 50 MG TABLET PO (11:32)
--- NOTE | 2024-04-12 12:09 | SWNOTE1 ---
SW met with pt to discuss dc needs. Pt is from [facility] term. Per patient he has been there for nearly 9 years. He does like the care he is getting there and plans on returning at discharge. SW to follow as needed. Important Message from Medicare reviewed and discussed with patient. Pt. verbalized understanding and signed the form. Original given to patient and copy placed in patient?s chart.
[2024-04-12 12:14] LABS: Vancomycin Trough 14.8 ug/mL (5.0-20.0)
--- NOTE | 2024-04-12 13:23 | SWNOTE1 ---
JOEL sent updates to [facility]. Updates included face sheet, ED note, H&P, vitals, labs, diagnostic imaging, med list, nursing notes, and PT/OT.
[2024-04-12] MEDS: ALBUTEROL SULFATE 2.5 MG/3 ML VIAL NEB IH ×2 (15:58→20:07)
[2024-04-12 16:27] LABS: Glucometer 359 mg/dL (74-106)
[2024-04-12] MEDS: ENOXAPARIN SODIUM 40 MG/0.4 ML SYRINGE SUBQ (16:42)
[2024-04-12] MEDS: BUDESONIDE 0.5 MG/2 ML AMPULE NEB IH (20:07)
[2024-04-12] MEDS: ACETAMINOPHEN 325 MG TABLET 650 MG PO (20:10)
[2024-04-12] MEDS: LACTATED RINGER'S SOLUTION 1,000 ML 125 ML IV (20:13)
[2024-04-12 21:03] LABS: Glucometer 347 mg/dL (74-106)
[2024-04-12] MEDS: QUETIAPINE FUMARATE 100 MG TABLET PO (21:25)
[2024-04-12] MEDS: ATORVASTATIN CALCIUM 40 MG TABLET PO (21:25)
[2024-04-12] MEDS: METOPROLOL TARTRATE 25 MG TABLET PO (21:25)
[2024-04-12] MEDS: INSULIN DETEMIR 300 UNIT/3 ML INSULN.PEN 20 UNIT SUBQ (21:29)
[2024-04-13] VITALS: BP 147/76; PULSE 100; TEMP 36.8; O2SAT 91
[2024-04-13 04:00] VITALS: BP 151/81; PULSE 104; TEMP 37.6; O2SAT 98
[2024-04-13 04:02] VITALS: PULSE 105; O2SAT 90
[2024-04-13] MEDS: ALBUTEROL SULFATE 2.5 MG/3 ML VIAL NEB IH (04:02)
[2024-04-13] MEDS: VANCOMYCIN HCL 1,000 MG in 0.9 % SODIUM CHLORIDE 250 ML 250 MG IV (04:48)
[2024-04-13] MEDS: PIPERACILLIN SODIUM/TAZOBACTAM 3.375 GM in 0.9 % SODIUM CHLORIDE 50 ML IV (05:53)
[2024-04-13 06:17] LABS: Basophils Percent Auto 0.2 % (0.2-2.0); Eosinophils Percent Auto 0.2 % (0.9-7.0); Hematocrit 33.1 % (42.0-54.0); Hemoglobin 10.2 g/dL (14.0-18.0); Immature Granulocytes Abs Auto 0.11 10^3/uL (0.00-0.03); Immature Granulocytes Pct Auto 0.7 % (0.0-0.5); Lymphocytes Absolute Auto 1.2 10^3/uL (1.2-3.8); Lymphocytes Percent Auto 7.2 % (20.5-60.0); Mean Corpuscular HGB Conc 30.8 g/dL (29.9-35.2); Mean Corpuscular Hemoglobin 24.9 pg (25.9-34.0); Mean Corpuscular Volume 80.7 fL (80.0-94.0); Mean Platelet Volume 12.5 fL (9.5-13.5); Monocytes Absolute Auto 1.2 10^3/uL (0.3-0.8); Monocytes Percent Auto 7.1 % (1.7-12.0); Neutrophils Absolute Auto 13.9 10^3/uL (1.4-6.5); Neutrophils Percent Auto 84.6 % (43.0-75.0); Platelet Count 243 10^3/uL (150-450); Red Cell Distribution Width 17.9 % (11.0-15.0); White Blood Count 16.4 10^3/uL (4.0-11.0)
[2024-04-13 06:28] LABS: Alanine Aminotransferase 14 U/L (16-63); Albumin Globulin Ratio 0.6; Albumin Level 2.4 g/dL (3.4-5.0); Alkaline Phosphatase 98 U/L (46-116); Anion Gap 10.5; Aspartate Amino Transferase 6 U/L (15-37); BUN Creatinine Ratio 16.3; Bilirubin Total 0.6 mg/dL (0.2-1.0); Calcium 8.5 mg/dL (8.5-10.1); Carbon Dioxide 26.9 mmol/L (21.0-32.0); Chloride 103 mmol/L (98-107); Estimated GFR (African America >60 (>=60); Estimated GFR (Non-African Ame >60 (>=60); Globulin 3.9 g/dL; Glucose 188 mg/dL (74-106); Potassium 3.4 mmol/L (3.5-5.1); Sodium 137 mmol/L (136-145); Total Protein 6.3 g/dL (6.4-8.2)
[2024-04-13 07:42] LABS: Glucometer 168 mg/dL (74-106)
[2024-04-13 07:54] VITALS: BP 128/63; PULSE 104; TEMP 37.6; O2SAT 94
[2024-04-13] MEDS: EZETIMIBE 10 MG TABLET 5 MG PO (09:06)
[2024-04-13] MEDS: DULOXETINE HCL 60 MG CAPSULE.DR PO (09:06)
[2024-04-13] MEDS: LOSARTAN POTASSIUM 50 MG TABLET PO (09:06)
[2024-04-13] MEDS: POTASSIUM CHLORIDE 10 MEQ ER TABLET 40 MEQ PO (09:06)
[2024-04-13] MEDS: METOPROLOL TARTRATE 25 MG TABLET PO (09:06)
--- NOTE | 2024-04-13 09:35 | SWNOTE1 ---
Pt is stable for discharge back to [place].
--- NOTE | 2024-04-13 10:27 | P.DS_ITS ---
DS: Providers Provider Date of admission: 04/12/24 10:32 Primary care physician: Non-Staff Physician, Admitting clinician: Shaikh Javier Attending physician on admission: Shaikh Javier Consults: 04/11/24 16:06 Occupational Therapy Eval and Treat Routine Reason for consultation: Ambulatory dysfunction/weakness Physical Therapy Eval and Treat Routine Reason for consultation: Ambulatory dysfunction/weakness Attending physician on discharge: Shaikh Javier Discharging clinician: Shaikh Javier Anticipated date of discharge: 04/13/24 DS: Diagnosis Discharge Diagnosis (1) Sepsis: Assessment and plan: Stable hemodynamics. Stable for discharge on oral antibiotics. Qualifiers: Sepsis acute organ dysfunction status: with acute organ dysfunction Sepsis type: sepsis due to unspecified organism Severe sepsis acute organ dysfunction type: encephalopathy Severe sepsis shock status: without septic shock Qualified Code(s): A41.9 - Sepsis, unspecified organism; R65.20 - Severe sepsis without septic shock; G93.41 - Metabolic encephalopathy (2) Cellulitis: Assessment and plan: No evidence of osteo or abscess on workup. Improved pain/swelling/erythema. Stable for discharge on oral antibiotics. Qualifiers: Site of cellulitis: extremity Site of cellulitis of extremity: lower extremity Laterality: right Qualified Code(s): L03.115 - Cellulitis of right lower limb (3) Altered mental status: Assessment and plan: Mental status is back to his baseline. Qualifiers: Altered mental status type: disorientation Qualified Code(s): R41.0 - Disorientation, unspecified (4) PVD (peripheral vascular disease): Assessment and plan: Outpatient follow-up (5) HTN (hypertension): Assessment and plan: C/w home medications. Qualifiers: Hypertension type: primary hypertension Qualified Code(s): I10 - Essential (primary) hypertension (6) Diabetes: Assessment and plan: C/w home medications. Will need to adjust regimen as outpatient as poorly controlled. 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 Patient was initially admitted as observation status but failed to show clinical improvement as anticipated and was changed to inpatient. Patient was treated with IV vancomycin and IV Zosyn. He also was treated with IV fluids. Patient had ultrasound of his right lower extremity that was negative for DVT or deep tissue abscess. He clinically improved over the course of admission and is stable for discharge on oral antibiotics. Patient's fingerstick blood glucose remained above goal throughout the course of admission and he will benefit from adjustment in his diabetic regimen as outpatient. Patient instructed to follow- up with PCP in 1 to 2 weeks. Status at Discharge Overall status at discharge: patient is back to baseline Time Spent with Patient Time attestation: Total time spent providing and/or coordinating discharge services: Time spent: greater than 30 minutes Exam Constitutional Vital Signs, click to edit/add: Last Vital Signs Temp 99.7 F 04/13/24 07:54 Pulse 104 H 04/13/24 07:54 Resp 16 04/13/24 07:54 BP 128/63 04/13/24 07:54 Pulse Ox 94 L 04/13/24 07:54 O2 Del Method Room Air 04/13/24 07:54 Documenting provider has reviewed patient's vital signs: yes Common normals: no apparent distress and oriented x3 General appearance: cooperative HENMT Common normals: normocephalic and head/scalp atraumatic Head and scalp: normocephalic and atraumatic Eye Other: right upper eye lid stye Respiratory Common normals: normal respiratory effort and clear to auscultation bilaterally Effort & inspection: able to speak in complete sentences Auscultation: clear to auscultation bilaterally Cardio Common normals: regular rate, S1 normal heart sound and S2 normal heart sound Rate: regular rate Heart sounds: S1 normal and S2 normal GI Common normals: Normal to inspection, nondistended, normoactive bowel sounds present, soft to palpation, non-tender and no hepatosplenomegaly Other: umbilical hernia Extremity Other: b/l BKA. Right LE - edema/erythema noted along stump and appearance seems c/w cellulitis - improved from before. Neuro Common normals: oriented x3, moves all extremities and no focal motor deficits Psych Common normals: mental status grossly normal, denies hallucinations, denies homicidal ideation and denies suicidal ideation DS: Data Data Completed and Pending Labs on day of discharge: Labs from last 24 hours 04/13/24 04/13/24 04/12/24 07:41 05:26 21:00 WBC 16.4 H RBC 4.10 L Hgb 10.2 L Hct 33.1 L MCV 80.7 MCH 24.9 L MCHC 30.8 RDW 17.9 H Plt Count 243 MPV 12.5 Neut % (Auto) 84.6 H Lymph % (Auto) 7.2 L [place] % (Auto) 7.1 Eos % (Auto) 0.2 L Baso % (Auto) 0.2 Neut # (Auto) 13.9 H Lymph # (Auto) 1.2 [place] # (Auto) 1.2 H Eos # (Auto) 0.0 Baso # (Auto) 0.0 Abs Immat Gran (auto) 0.11 H Imm/Tot Granulo (auto) 0.7 H Sodium 137 Potassium 3.4 L Chloride 103 Carbon Dioxide 26.9 Anion Gap 10.5 BUN 15.0 Creatinine 0.92 Est GFR ( Amer) >60 Est GFR (Non-Af Amer) >60 BUN/Creatinine Ratio 16.3 Glucose 188 H Calcium 8.5 Total Bilirubin 0.6 AST 6 L ALT 14 L Alkaline Phosphatase 98 Total Protein 6.3 L Albumin 2.4 L Globulin 3.9 Albumin/Globulin Ratio 0.6 Vancomycin Trough POC Glucose 168 H 347 H 04/12/24 04/12/24 04/12/24 16:27 11:50 11:16 WBC RBC Hgb Hct MCV MCH MCHC RDW Plt Count MPV Neut % (Auto) Lymph % (Auto) B[place] % (Auto) Eos % (Auto) Baso % (Auto) Neut # (Auto) Lymph # (Auto) Borden # (Auto) Eos # (Auto) Baso # (Auto) Abs Immat Gran (auto) Imm/Tot Granulo (auto) Sodium Potassium Chloride Carbon Dioxide Anion Gap BUN Creatinine Est GFR ( Amer) Est GFR (Non-Af Amer) BUN/Creatinine Ratio Glucose Calcium Total Bilirubin AST ALT Alkaline Phosphatase Total Protein Albumin Globulin Albumin/Globulin Ratio Vancomycin Trough 14.8 POC Glucose 359 H 278 H Discharge Plan Discharge Disposition: Xfer SNF Condition: Good Discharge Medications: New sulfamethoxazole-trimethoprim [Bactrim DS] 800-160 mg tablet 1 tab PO BID Qty: 20 0RF Continued atorvastatin 40 mg tablet 40 mg PO .QHS ipratropium-albuterol 0.5 mg-3 mg(2.5 mg base)/3 mL solution for nebulization 3 ml INHALATION Q6H PRN (Reason: shortness of breath or wheezing) tizanidine 4 mg tablet 4 mg PO .QHS PRN (Reason: muscle spasticity) valsartan 80 mg tablet 80 mg PO .QD quetiapine 100 mg tablet 100 mg PO .QHS ezetimibe 10 mg tablet 5 mg PO .QD insulin aspart U-100 [Novolog FlexPen U-100 Insulin] 100 unit/mL (3 mL) insulin pen 1 sliding scale dose SUBCUT QID metoprolol tartrate 25 mg tablet 25 mg PO Q12H duloxetine 60 mg capsule,delayed release(DR/EC) 60 mg PO QAM budesonide-formoterol [Symbicort] 160-4.5 mcg/actuation HFA aerosol inhaler 2 puff INHALATION Q12H Ozempic 0.25 mg or 0.5 mg(2 mg/1.5 mL) pen injector 0.25 mg SUBCUT QWEEK Print Language: Beninese Forms: Portal Instructions Follow Up Appointments: f/u with PCP in one week
[2024-04-13 10:31] VITALS: O2SAT 90
--- NOTE | 2024-04-13 10:38 | CM.NOTE ---
Rounds made with Dr. Herrera. Dr. Herrera discussed with Bayron plan is to discharge back to [place] [place] today.
--- NOTE | 2024-04-13 10:53 | PC.NURSE ---
Report called to [facility]. pt leaving at 11:15 per squad
--- NOTE | 2024-04-13 11:17 | SWNOTE1 ---
JOEL called and set up stetcher transportation back to [facility]. Lynnorah will be arriving around 11:15. JOEL sent CRF, dc med rec, and dc summary to [facility]. JOEL let nursing and [facility] know time. JOEL took packet out to the floor.
--- NOTE | 2024-04-13 11:20 | SWNOTE1 ---
SW called pt's daughter, Yarely, and let her know dc time as well.
--- OUTSIDE RECORDS SUMMARY | 2024-04-26 16:38 | XMS_ITS | CCD ---
Author Organization [facility] Inform ion Partnership [facility] Care Team Providers Care Manager Sterile Processing Name Role Phone FLACO AZEVEDO Referring Unavailable BENITEZ ORTIZ Primary Care Unavailable ANGEL, BENITEZ Fernández Primary Care Unavailable LUCY GEE Attending Unavailable SHARDA PENA Referring Unavailable BENITEZ ORTIZ Primary Care Unavailable ANOOP STUBBS Admitting Unavailable ENOC, ANOOP Attending Unavailable [facility] [place], Primary Care Unavailable ANOOP STUBBS Admitting Unavailable ANOOP STUBBS Attending Unavailable ANOOP STUBBS Consulting Unavailable MIRTHA, DR BOYLE Primary Care Unavailable VALONE, DR DAVALOS Consulting Unavailable VALONE, DR DAVALOS Attending Unavailable VALONE, DR DAVALOS Admitting Unavailable Dalila SANDHU Attending Unavailable Allergies Allergy Classification Reported Allergen(s) Allergy Type Date of Onset Reaction(s) Facility (1 source) No Known Medication Allergies; Translations: [No Known Medication Allergies] Propensity to adverse reactions (disorder) [facility] Repository Medications Current Medications Medication Drug Class(es) Dates Sig (Normalized) Sig (Original) albuterol 0.833 mg/ml / ipratropium bromide 0.167 mg/ml inhalation solution (1 source) Anticholinergic, beta2-Adrenergic Agonist Start: 12-18-2023 DuoNeb 2.5 mg-0.5 mg/3 mL Soln-Inh Refill(s) 0, as directed Start Date: 12/18/23 Status: Ordered aspirin 81 mg chewable tablet (1 source) Platelet Aggregation Inhibitor, Nonsteroidal Anti-inflammatory Drug Start: 12-25-2023 aspirin 81 mg Chew Tab 81 mg = 1 tab(s), Chewed, Daily, Refills(s) 0 Start Date: 12/25/23 Status: Ordered atorvastatin 40 mg oral tablet (1 source) HMG-CoA Reductase Inhibitor Start: 10-14-2019 take 1 mg by mouth once daily atorvastatin 40 mg Tab mg tab(s), Oral, Daily Start Date: 10/14/19 Status: Ordered Cymbalta 60 mg Cap-DR (1 source) Start: 10-14-2019 take 1 mg by mouth once daily Cymbalta 60 mg Cap-DR mg, Oral, Daily Start Date: 10/14/19 Status: Ordered duloxetine 30 mg Cap-DR (1 source) Start: 12-18-2023 take 1 capsule by mouth twice daily duloxetine 30 mg Cap-DR = 1 cap(s), Oral, BID, Refills(s) 0 Start Date: 12/18/23 Status: Ordered ezetimibe 10 mg oral tablet (1 source) Dietary Cholesterol Absorption Inhibitor Start: 10-14-2019 take 1 tablet by mouth once daily Zetia 10 mg Tab 10 mg = 1 tab(s), Oral, Daily Start Date: 10/14/19 Status: Ordered insulin aspart, human 100 unt/ml injectable solution (1 source) Insulin Analog Start: 10-14-2019 NovoLOG 100 units/mL injectable solution See Instructions, as directed Start Date: 10/14/19 Status: Ordered metFORMIN hydrochloride 500 mg oral tablet (1 source) Biguanide Start: 12-25-2023 take 2 tablets by mouth once daily metformin 500 mg Tab 1,000 mg = 2 tab(s), Oral, Daily, Refills(s) 0 Start Date: 12/25/23 Status: Ordered metoprolol tartrate 25 mg oral tablet (1 source) beta-Adrenergic Solis Start: 12-18-2023 take 1 tablet by mouth twice daily Metoprolol tartrate 25 mg Tab 25 mg = 1 tab(s), Oral, BID, Refills(s) 0 Start Date: 12/18/23 Status: Ordered pantoprazole 40 mg delayed release oral tablet (1 source) Proton Pump Inhibitor Start: 10-14-2019 take 1 mg by mouth once daily Pantoprazole [address] Tab mg tab(s), Oral, Daily Start Date: 10/14/19 Status: Ordered QUEtiapine 100 mg oral tablet (1 source) Atypical Antipsychotic Start: 12-18-2023 take 1 tablet by mouth once daily quetiapine 100 mg Tab 100 mg = 1 tab(s), Oral, Daily, Refills(s) 0 Start Date: 12/18/23 Status: Ordered 1 mg dose 1.5 ml semaglutide 1.34 mg/ml pen injector (1 source) Start: 12-18-2023 Ozempic 2 mg/1.5 mL (1 mg dose) subcutaneous solution Refill(s) 0, as directed Start Date: 12/18/23 Status: Ordered Symbicort 160/4.5 inhalation aerosol with adapter (1 source) Start: 12-18-2023 take 2 puff(s) by inhalation twice daily Symbicort 160/4.5 inhalation aerosol with adapter 2 puff(s), Inhalation, BID, Refill(s) 0 Start Date: 12/18/23 Status: Ordered tiZANidine 4 mg oral capsule (1 source) Central alpha-2 Adrenergic Agonist Start: 10-14-2019 take 1 mg by mouth every eight hours tizanidine 4 mg oral capsule mg cap(s), Oral, q8hr Start Date: 10/14/19 Status: Ordered Problems Active Problems Problem Classification Problem Date Documented Date Episodic/Chronic Acute cerebrovascular disease (2 sources) Cerebral infarction; Translations: [Cerebral infarction due to stenosis of precerebral artery] 12-18-2023 Chronic Cataract (1 source) Cataract 10-14-2019 Chronic Chronic obstructive pulmonary disease and bronchiectasis (2 sources) Chronic obstructive lung disease 12-18-2023 Chronic Coronary atherosclerosis and other heart disease (1 source) Atherosclerotic heart disease of samish coronary artery without angina pectoris; Translations: [Atherosclerotic heart disease of samish coronary artery without angina pectoris] Onset: 04-30-2018 Chronic Diabetes mellitus with complications (1 source) 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 10-14-2019 Chronic Diabetes mellitus with complications (2 sources) Type 2 diabetes mellitus with diabetic peripheral angiopathy with gangrene; Translations: [Type 2 diabetes mellitus with diabetic peripheral angiopathy without gangrene] Onset: 11-11-2018 Diabetes mellitus without complication (1 source) Diabetes mellitus 12-18-2023 Chronic Disorders of lipid metabolism (3 sources) Hyperlipidemia, unspecified; Translations: [Hyperlipidemia] Onset: 04-24-2017 10-14-2019 Chronic Esophageal disorders (1 source) Gastroesophageal reflux disease 12-18-2023 Chronic Essential hypertension (2 sources) Essential hypertension; Translations: [Hypertensive disorder] 10-14-2019 Chronic Gangrene (1 source) 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, left leg; Translations: [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, left leg] Onset: 11-11-2018 Chronic Gangrene (1 source) Gangrene, not elsewhere classified; Translations: [Gangrene, not elsewhere classified] Onset: 11-11-2018 Episodic Other aftercare (1 source) residential (current) use of insulin; Translations: [residential (current) use of insulin] Onset: 11-11-2018 Episodic Other aftercare (4 sources) Other [place] [facility] (current) drug therapy; Translations: [OTH LICENSED OCCUPATIONAL THERAPIST CURRENT DRUG THERAPY] Onset: 05-21-2022 Episodic Other and ill-defined cerebrovascular disease (2 sources) Cerebral atherosclerosis 10-14-2019 Chronic Other and unspecified benign neoplasm (2 sources) Benign neoplasm of adrenal gland 10-14-2019 Episodic Other bone disease and musculoskeletal deformities (1 source) Acquired absence of right leg below knee; Translations: [Acquired absence of right leg below knee] Onset: 11-11-2018 Chronic Other connective tissue disease (1 source) Muscle weakness 10-14-2019 Episodic Other diseases of kidney and ureters (1 source) Disorder of kidney and/or ureter 10-14-2019 Episodic Other nervous system disorders (1 source) Cognitive communication disorder 10-14-2019 Chronic Other nervous system disorders (1 source) Cognitive deficit in communication skills 12-18-2023 Chronic Other screening for suspected conditions (not mental disorders or infectious disease) (1 source) Disorder of cardiovascular system 10-14-2019 Episodic Peripheral and visceral atherosclerosis (3 sources) Peripheral vascular disease, unspecified; Translations: [Peripheral vascular disease] Onset: 04-30-2018 10-14-2019 Chronic Pulmonary heart disease (2 sources) Pulmonary hypertension 10-14-2019 Chronic Residual codes; unclassified (1 source) Tobacco user 10-14-2019 Episodic Respiratory failure; insufficiency; arrest (adult) (1 source) Respiratory failure 10-14-2019 Episodic Schizophrenia and other psychotic disorders (2 sources) Schizophrenia 10-14-2019 Chronic Skin and subcutaneous tissue infections (3 sources) Omphalitis; Translations: [Omphalitis not of ] Onset: 12-25-2023 Episodic Past or Other Problems Problem Classification Problem Date Documented Da te Episodic/Chronic Open wounds of extremities (2 sources) Unspecified open wound of unspecified toe(s) without damage to nail, initial encounter; Translations: [Unspecified open wound of unspecified toe(s) with damage to nail, initial encounter] Onset: 08-09-2018 Episodic Unclassified (1 source) History of amputation of right leg through tibia and fibula 10-14-2019 Results Test Name Value Interpretation Reference Range Facil ity Ambulatory Visit Summaryon 0 12-25-2023 Ambulatory Visit Summary DALILA MCDOWELL Brie :1955 Visit Date:12/25/2023 Ambulatory Visit Instructions Your Care Team Attending Physician - Dalila SANDHU MD This Is Your Medications List acarbose (acarbose 100 mg oral tablet) albuterol-ipratropium (DuoNeb 2.5 mg-0.5 mg/3 mL Soln-Inh) atorvastatin (atorvastatin 40 mg Tab) budesonide-formoterol (Symbicort 160/4.5 inhalation aerosol with adapter) duloxetine (Cymbalta 60 mg Cap-DR) duloxetine (duloxetine 30 mg Cap-DR) ezetimibe (Zetia 10 mg Tab) insulin aspart (NovoLOG 100 units/mL injectable solution) metformin (metformin 1000 mg oral tablet) metoprolol (Metoprolol tartrate 25 mg Tab) pantoprazole (Pantoprazole [address] Tab) quetiapine (quetiapine 100 mg Tab) semaglutide (Ozempic 2 mg/1.5 mL (1 mg dose) subcutaneous solution) tizanidine (tizanidine 4 mg oral capsule) valsartan (valsartan 80 mg Tab) Procedures Performed History of amputation of left leg below the knee, History of amputation of right leg below the knee. Discharge Vitals Heart Rate (Peripheral) 82 Respiratory Rate 16 Blood Pressure 147/88 Medications What How Much When Instructions Unchanged acarbose (acarbose 100 mg oral tablet) Unchanged albuterol-ipratropium (DuoNeb 2.5 mg-0.5 mg/ 3 mL Soln-Inh) as directed Unchanged atorvastatin (atorvastatin 40 mg Tab) By Mouth Every day Unchanged budesonide-formoterol (Symbicort 160/ 4.5 inhalation aerosol with adapter) 2 Puffs Inhalation 2 times a day Unchanged duloxetine (Cymbalta 60 mg Cap-DR) By Mouth Every day Unchanged duloxetine (duloxetine 30 mg Cap-DR) 1 Capsules By Mouth 2 times a day Unchanged ezetimibe (Zetia 10 mg Tab) 1 Tablets By Mouth Every day Unchanged insulin aspart (NovoLOG 100 units/ mL injectable solution) See instructions as directed Unchanged metformin (metformin 1000 mg oral tablet) By Mouth 2 times a day Unchanged metoprolol (Metoprolol tartrate 25 mg Tab) Unchanged pantoprazole (Pantoprazole [address] Tab) By Mouth Every day Unchanged quetiapine (quetiapine 100 mg Tab) Unchanged semaglutide (Ozempic 2 mg/ 1.5 mL (1 mg dose) subcutaneous solution) as directed Unchanged tizanidine (tizanidine 4 mg oral capsule) By Mouth Every 8 hours Unchanged valsartan (valsartan 80 mg Tab) 1 Tablets By Mouth Every day Allergies No Known Allergies No Known Medication Allergies Problems Ongoing - Any problem that you are currently receiving treatment for. Abscess of buttock, left Benign neoplasm of adrenal gland Cerebral atherosclerosis Cerebral infarction Chronic obstructive pulmonary disease Cognitive communication deficit Diabetes GERD (gastroesophageal reflux disease) HTN (hypertension) Hyperlipidemia Pulmonary HTN PVD (peripheral vascular disease) Schizophrenia Historical - Any problem that you are no longer receiving treatment for. 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 Please share your experience with us by completing your survey. We appreciate your feedback and thank you for choosing us for your care. Normal [facility] RAD - CT Reporton 12-24-2023 RAD - CT Report [id number] Normal [facility] ED Note-Physicianon 12-18-19 ED Note-Physician [id number] Normal [facility] TROPONIN, HIGH SENSITIVITYon 05-21-2022 HSTROP 7.2 pg/mL Normal 4.0-76.1 [facility] Comment on above: Result Comment: CUT- OFF POINTS HAVE BEEN ESTABLISHED BASED ON THE FOURTH UNIVERSAL DEFINITIONS OF MYOCARDIAL INFARCTION. THE UPPER REFERENCE LIMIT (URL) OF TROPONIN, DEFINED THE 99TH PERCENTILE OF cTnI DISTRIBUTION IN A REFERENCE POPULATION, HAS BEEN CONFIRMED THE DECISION THRESHOLD FOR VA DIAGNOSIS. Performed By: #### H STROPN #### [facility] [address] [address] Dr. Madelnie Henriquez TROPONIN - Ion 05-17-2019 Troponin I.cardiac [Mass/Vol] ng/mL Normal <=0.034 [facility] Comment on above: Performed By: #### T ROP #### [facility] [address] [place], [place] [id number] [facility] Troponin I.cardiac [Mass/Vol] SEE BELOW Normal [facility] Comment on above: Result Comment: <0.0 34 ng/ml NEGATIVE 0.034-0.119 INDETERMINATE 0.120 AMI CUT OFF Performed By: #### T ROP #### [facility] [address] [place] [address] Yonatan Carr Hemoglobin A1Con 04-30-2018 Hemoglobin A1c/Hemoglobin.total mass fraction (Bld) 7.9 % High 4.8-5.9 [facility] Comment on above: Performed By: #### G LYHGB, LIPR #### [address] [place] [address] Hemoglobin A1c/Hemoglobin.total mass fraction (Bld) 180 mg/dL Normal [facility] Comment on above: Result Comment: The ADA and AACC recommend providing the estimated average glucose result to permit better patient understanding of their HBA1c result. Performed By: #### G LYHGB, LIPR #### [address] [place] [address] Lipid Profileon 04-30-2018 Cholesterol in HDL mass conc 33 mg/dL Low >40 [facility] Comment on above: Result Comment: HDL Guidelines: <40 Undesirable 40-59 Borderline >59 Desirable Performed By: #### G LYHGB, LIPR #### [address] [place] [address] Cholesterol in LDL mass conc 65 mg/dL Normal 0-130 [facility] Comment on above: Result Comment: LDL Guidelines: <100 Desirable 100-129 Near to/above Desirable 130-159 Borderline >159 Undesirable Direct (measured) LDL and calculated LDL are not interchangeable tests. Performed By: #### G LYHGB, LIPR #### [address] [place] [address] Cholesterol mass conc 124 mg/dL Normal <200 [facility] Comment on above: Result Comment: Cholesterol Guidelines: <200 Desirable 200-240 Borderline >240 Undesirable Performed By: #### G LYHGB, LIPR #### [address] [place] [address] Cholesterol.total/Ch olesterol in HDL mass ratio 3.8 {ratio} Normal <5 [facility] Comment on above: Performed By: #### G LYHGB, LIPR #### [address] [place] [address] Triglyceride mass conc 131 mg/dL Normal <150 [facility] Comment on above: Result Comment: Triglyceride Guidelines: <150 Desirable 150-199 Borderline 200-499 High >499 Very high Based on AHA Guidelines for fasting triglyceride, June 2012. Performed By: #### G LYHGB, LIPR #### [address] [place] [address] Cholesterol in VLDL mass conc NOT REPORTED Normal 10-13 [facility] Comment on above: Performed By: #### G LYHGB, LIPR #### [address] [place] [address] Vital Signs Date Time Vital Sign Value Performing Clinician Gerard garg 12-25-2023 10:23-0400 Diastolic blood pressure 88 mm[Hg] Dalila SANDHU [facility] 12-25-2023 10:23-0400 Heart rate 82 /min Dalila SANDHU [facility] 12-25-2023 10:23-0400 Respiratory rate 16 /min Dalila HADDADMagdaleno [facility] 12-25-2023 [id number] Systolic blood pressure 147 mm[Hg] Dalila HADDADL [facility] Encounters Encounter Date Encounter Type Care Provider Facility Start: 12-25-2023 End: 12-26-2023 ambulatory Dalila Alcantar EDSON Facility:[facility] Start: 12-25-2023 End: 12-25-2023 Patient encounter procedure Dalila Alcantar EDSON [facility] Start: 05-21-2022 End: 05-21-[address] DOCTOR BARRETT Facility: Start: 05-17-2019 End: 05-17-2019 Patient encounter procedure ANOOP STUBBS Facility: Start: 04-26-2019 End: 04-26-2019 Patient encounter procedure [facility] Facility: Start: 11-11-2018 End: 11-12-2018 Patient encounter procedure [facility] Start: 08-09-2018 End: 08-09-2018 Emergency department patient visit BENITEZ [facility] Start: 04-30-2018 End: 05-01-2018 Patient encounter procedure FLACO AZEVEDO [facility] Procedures Date Procedure Procedure Detail Performing Clinician Start: 11-11-2018 APPLY DRESSING FLACO Baird Start: 11-11-2018 AMB EXTERNAL REFERRA L TO VASCULAR SURGERY FLACO AZEVEDO Start: 04-30-2018 Hemoglobin glycosyla jennifer a1c FLACO AZEVEDO Start: 04-30-2018 Lipid panel FLACO AZEVEDO 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 Dalila NILL History of amputatio n of right leg through tibia and fibula Dalila LocalOnL Immunizations Immunization Date Immunization Notes Care Provider Fa son 04-30-2022 SARS-CoV-2 (COVID-19 ) mRNA-[address] [facility] 10-30-2021 SARS-CoV-2 (COVID-19 ) mRNA-[address] [facility] 10-12-2020 SARS-CoV-2 (COVID-19 ) mRNA-[address] [facility] 09-12-2020 SARS-CoV-2 (COVID-19 ) mRNA-[address] [facility] Comment on above: Result Comment: 2023: TPV3 Payers Date Payer Category Payer Private Health Insurance [id number] 1958 Medicaid [id number] 1958 Medicare [id number] 1958 Medicare [id number] 1955 Unknown [id number] [id number] 1955 Unknown [id number] 2.16.8 [id number] 1955 Unknown [id number] 2.16.8 [id number] 1955 Unknown [id number] 2.16.84 [id number] 1955 Unknown [id number] 2.16.84 [id number] 1955 Unknown [id number] 2.16.84 [id number] 1955 Unknown [id number] 2.16.8 [id number] Social History Date Type Detail Facility Start: 12-25-2023 Tobacco smoking status Light t obacco smoker (finding) [facility] Tobacco smoking status Never [facility] [place] Sex Assigned At Male [facility] Functional Status Date Assessment Result Facility 12-25-2023 Functional Status N/A [facility] [place] Clinical Note 12-25-2023 Note Date & Type Note Facility 12-25-2023 Note Chief Complaint consultation for abdominal mass HPI Staff 68 year old male presents on consultation from [place] ED for umbilical mass. Presented to ED 12/13 with complaint of mass x [address] ABD/pelvis with small lesion vs fluid collection vs mass. Prescribed Bactrim BID x 10 days and Keflex 500mg TID x 10 days. History of Present Illness 68 yo male with h/o htn, DM, hyperlipidemia, PVD, CAD, CVA, pulmonary htn, schizophrenia, referred from [facility] ED for umbilical infection/abscess; patient seen in ED 12/14/23 for painful lump at umbilicus, no drainage, no fevers, normal wbc; abd/pelvic ct scan images reviewed, no fascial defect or peritoneal involvement; placed on Bactrim and Keflex for 10 days; patient poor historian, no one from jail with him; denies umbilical pain, had some drainage, none now; completing antibiotics. Review of Systems PHQ Score Initial Depression Screen Score: 0 SCORE ROS - Provider Constitutional: no fever, no sweats, no weight loss. Eyes: no glasses, no blurred vision, no visual loss. ENMT: no dentures, no hoarseness, no swallowing difficulties, no hearing loss, no ear infection(s), no nose bleeds. Cardiovascular: normal blood pressure, no chest pain, regular heartbeat, no heart murmur. Respiratory: no shortness of breath, no cough, no asthma, no wheezing. Gastrointestinal: no nausea, no vomiting, no diarrhea, no constipation, no blood in stool, no change in bowel habits, no abdominal pain, no hepatitis. Genitourinary: no kidney stones, no urine infection, no dysuria. Musculoskeletal: no pain, no weakness. Skin: no changing moles, no rash, no skin lumps. Neurologic: no seizures, no epilepsy, no headache. Psychiatric: no emotional or psychiatric problem. Heme/Lymph: no bleeding problems, no anemia, no blood clots, no transfusions. Allergy/Immunologic: no swollen lymph nodes/glands, no IV drug abuse. Other: Additional ROS info: Except as noted in the above Review of Systems and in the History of Present Illness, all other systems have been reviewed and are negative or noncontributory. Physical Exam Vitals & Measurements HR: 82(Peripheral) RR: 16 BP: 147/88 Gastrointestinal: soft, non distended, no tenderness, umbilicus with firm nodule/thickening to right, nontender, no drainage or open areas; no palpable hernias, diastasis recti yes, no hepatosplenomegaly; normal bs Lymphatic: no cervical adenopathy, no supraclavicular adenopathy. Musculoskeletal: LE amputations, digits and nails without infection, nodes, cyanosis, clubbing. Skin: no rashes, no lesions, no ulcers, no subcutaneous nodules, induration. Psychiatric/Neuro: oriented to time, place, person, judgement normal, affect appropriate for age, insight intact, no focal deficits. Tests: labs reviewed, x-rays reviewed, review of old records completed , Assessment/Plan 1. Omphalitis in adult (L08.82: Omphalitis not of ) resolving, keep umbilicus clean and dry, clean with rubbing alcohol bid; call with problems/questions. Skin abscess (L02.91: Cutaneous abscess, unspecified) resolved. Ordered: Current tobacco smoker 1034F Most recent diastolic blood pressure 80-89 mm Hg 3079F Most recent systolic blood pressure >= 140 mm Hg 3077F Follow-up No qualifying data available Problem List/Past Medical History Ongoing Abscess of buttock, left Benign neoplasm of adrenal gland Cerebral atherosclerosis Cerebral infarction Chronic obstructive pulmonary disease Cognitive communication deficit Diabetes GERD (gastroesophageal reflux disease) HTN (hypertension) Hyperlipidemia Omphalitis in adult Pulmonary HTN PVD (peripheral vascular disease) Schizophrenia Historical Benign neoplasm of adrenal gland Cataract Cerebral atherosclerosis Cerebral infarction due to stenosis of precerebral artery Cognitive communication disorder COPD - Chronic obstructive pulmonary disease Disorder of kidney and/or ureter Disorder of the circulatory system Essential hypertension History of amputation of right leg below the knee Hyperlipidemia Muscle weakness Peripheral vascular disease Pulmonary hypertension Respiratory failure Schizophrenia Tobacco use 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 Medications aspirin 81 mg Chew Tab, 81 mg= 1 tab(s), Chewed, Daily atorvastatin 40 mg Tab, Oral, Daily Cymbalta 60 mg Cap-DR, Oral, Daily duloxetine 30 mg Cap-DR, 1 cap(s), Oral, BID DuoNeb 2.5 mg-0.5 mg/3 mL Soln-Inh metformin 500 mg Tab, 1000 mg= 2 tab(s), Oral, Daily Metoprolol tartrate 25 mg Tab, 25 mg= 1 tab(s), Oral, BID NovoLOG 100 units/mL injectable solution, See Instructions Ozempic 2 mg/1.5 mL (1 mg dose) subcutaneous solution Pantoprazole [address] Tab, Oral, Daily quetiapine 100 mg Tab, 100 mg= 1 tab(s), Oral, Daily Symbicort 160/4.5 i (more content not included)... [facility] Comment on above: Result Comment: Elec tronically Signed By: EDSON JOY, Dalila Rodriguez\Date and Time Signed: 12/25/23 10:50 EDT Evaluation + Plan note Note Date & Type Note Facility Evaluation + Plan note No data available for this section [facility] Discharge instructions Note Date & Type Note Facility Hospital Discharge instructions No data available for this section [facility] [place] [facility] note Note Date & Type Note Facility Progress note No data available for this section [facility] [place] Summary Purpose Family History No Family History Records FoundNo Family History Records FoundNo Family History Records Found No data available for this section No Family History Records Found Advance Directives No Advanced Directives Records FoundNo Advanced Directives Records FoundNo Advanced Directives Records FoundNo Advanced Directives Records Found Additional Source Comments (unrecognized sect ion and content) No Status Records FoundNo Status Records FoundNo Status Records FoundNo Status Records Found INFORMATION SOURCE (unrecogn ized section and content) DATE CREATED AUTHOR 11/14/2018 [facility] DATE CREATED AUTHOR AUTHOR'S ORGANIZ ATION 05/19/2019 [facility] DATE CREATED AUTHOR AUTHOR'S ORGANIZ ATION 05/25/2022 [facility] DATE CREATED AUTHOR AUTHOR'S ORGANIZ ATION 01/09/2024 [facility] FOR RECORDS PERTAINING TO PATIENTS WHO ARE OR HAVE BEEN ENROLLED IN A CHEMICAL DEPENDENCY/SUBSTANCEABUSE PROGRAM, SOME INFORMATION MAY BE OMITTED. This clinical summary was aggregated from multiple sources. Caution should be exercised in using it in the provision of clinical care. This summary normalizes information from multiple sources, and as a consequence, information in this document may materially change the coding, format and clinical context of patient data. In addition, data may be omitted in some cases. CLINICAL DECISIONS SHOULD BE BASED ON THE PRIMARY CLINICAL RECORDS. [employer] [facility]. provides no warranty or guarantee of the accuracy or completeness of information in this document.
--- OUTSIDE RECORDS SUMMARY | 2024-04-26 16:39 | XMS_ITS | CCD ---
Author Organization [facility] Inform ion Partnership [facility] Care Team Providers Care Senior Asset Manager Name Role Phone FLACO AZEVEDO Referring Unavailable BENITEZ ORTIZ Primary Care Unavailable ANGEL, BENITEZ Fernández Primary Care Unavailable LUCY GEE Attending Unavailable SHARDA PENA Referring Unavailable BENITEZ ORTIZ Primary Care Unavailable ANOOP STUBBS Admitting Unavailable ENOC, ANOOP Attending Unavailable [facility] Unavailable ANOOP STUBBS Admitting [...] Medication Allergies] Propensity to adverse reactions (disorder) [facility] Repository Medications Current Medications Medication Drug Class(es) [...] disease (1 source) Atherosclerotic heart disease of rincon coronary artery without angina pectoris; Translations: [Atherosclerotic heart disease of rincon coronary artery without angina pectoris] Onset: 04-30-2018 [...] 10-14-2019 Chronic Gangrene (1 source) 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 Normal [facility] RAD - CT Reporton 12-24-2023 RAD - CT Report [id number] .00TIFF Normal [facility] ED Note-Physicianon 12-18-19 ED Note-Physician [id number] .[id number] Normal [facility] TROPONIN, HIGH SENSITIVITYon 05-21-2022 HSTROP 7.2 pg/mL Normal 4.0-76.1 [facility] Comment on above: Result Comment: CUT- OFF POINTS HAVE BEEN ESTABLISHED BASED ON THE FOURTH UNIVERSAL DEFINITIONS OF MYOCARDIAL INFARCTION. THE UPPER REFERENCE LIMIT (URL) OF TROPONIN, DEFINED THE 99TH PERCENTILE OF cTnI DISTRIBUTION IN A REFERENCE POPULATION, HAS BEEN CONFIRMED THE DECISION THRESHOLD FOR RI DIAGNOSIS. Performed By: #### H STROPN #### [facility] [address] [place] [address] Dr. Madeline Henriquez TROPONIN - Ion 05-17-2019 Troponin I.cardiac [Mass/Vol] ng/mL Normal <=0.034 [facility] Comment on above: Performed By: #### T ROP #### [facility] [address] [place], [place] [id number] [facility] Troponin I.cardiac [Mass/Vol] SEE BELOW Normal [facility] Comment on above: Result Comment: <0.0 34 ng/ml NEGATIVE 0.034-0.119 INDETERMINATE 0.120 AMI CUT OFF Performed By: #### T ROP #### [facility] [address] [place] [address] Yonatan Carr Hemoglobin A1Con 04-30-2018 Hemoglobin A1c/Hemoglobin.total mass fraction (Bld) 7.9 % High 4.8-5.9 [facility] Comment on above: Performed By: #### G LYHGB, LIPR #### [address] [place] [address] Hemoglobin A1c/Hemoglobin.total mass fraction (Bld) 180 mg/dL Normal [facility] Comment on above: Result Comment: The ADA and AACC recommend providing the estimated average glucose result to permit better patient understanding of their HBA1c result. Performed By: #### G LYHGB, LIPR #### [address] [place] [address] Lipid Profileon 04-30-2018 Cholesterol in HDL mass conc 33 mg/dL Low >40 [facility] Comment on above: Result Comment: HDL Guidelines: <40 Undesirable 40-59 Borderline >59 Desirable Performed By: #### G LYHGB, LIPR #### [address] [place] [address] Cholesterol in LDL mass conc 65 mg/dL Normal 0-130 [facility] Comment on above: Result Comment: LDL Guidelines: <100 Desirable 100-129 Near to/above Desirable 130-159 Borderline >159 Undesirable Direct (measured) LDL and calculated LDL are not interchangeable tests. Performed By: #### G LYHGB, LIPR #### [address] [place] [address] Cholesterol mass conc 124 mg/dL Normal <200 [facility] Comment on above: Result Comment: Cholesterol Guidelines: <200 Desirable 200-240 Borderline >240 Undesirable Performed By: #### G LYHGB, LIPR #### [address] [place] [address] Cholesterol.total/Ch olesterol in HDL mass ratio 3.8 {ratio} Normal <5 [facility] Comment on above: Performed By: #### G LYHGB, LIPR #### [address] [place] [address] Triglyceride mass conc 131 mg/dL Normal <150 [facility] Comment on above: Result Comment: Triglyceride Guidelines: <150 Desirable 150-199 Borderline 200-499 High >499 Very high Based on AHA Guidelines for fasting triglyceride, June 2012. Performed By: #### G LYHGB, LIPR #### [address] [place] [address] Cholesterol in VLDL mass conc NOT REPORTED Normal 10-13 [facility] Comment on above: Performed By: #### G LYHGB, LIPR #### [address] [place] [address] Vital Signs Date Time Vital Sign Value Performing Clinician Gerard garg 12-25-2023 10:23-0400 Diastolic blood pressure 88 mm[Hg] Dalila SANDHU [facility] [place] 12-25-2023 10:23-0400 Heart rate 82 /min Dalila SANDHU [facility] 12-25-2023 10:23-0400 Respiratory rate 16 /min Dalila HADDADMagdaleno [facility] 12-25-2023 [id number] Systolic blood pressure 147 mm[Hg] Dalila HADDADL [facility] Encounters Encounter Date Encounter Type Care Provider Facility Start: 12-25-2023 End: 12-26-2023 ambulatory Dalila Alcantar EDSON Facility:[facility] Start: 12-25-2023 End: 12-25-2023 Patient encounter procedure Dalila Alcantar EDSON [facility] Start: 05-21-2022 End: 05-21-[address] DOCTOR BARRETT Facility: Start: 05-17-2019 End: 05-17-2019 Patient encounter procedure ANOOP STUBBS Facility: Start: 04-26-2019 End: 04-26-2019 Patient encounter procedure [facility] Facility: Start: 11-11-2018 End: 11-12-2018 Patient encounter procedure [facility] Start: 08-09-2018 End: 08-09-2018 Emergency department patient visit BENITE[facility] Start: 04-30-2018 End: 05-01-2018 Patient encounter procedure FLACO AZVEEDO [facility] Procedures Date Procedure Procedure Detail Performing Clinician Start: 11-11-2018 APPLY DRESSING FLACO Baird Start: 11-11-2018 AMB EXTERNAL REFERRA L TO VASCULAR SURGERY FLACO AZEVEDO Start: 04-30-2018 Hemoglobin glycosyla jennifer a1c FLACO AZEVEDO Start: 04-30-2018 Lipid panel FLACO AZEVEDO 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 Dalila NILL History of amputatio n of right leg through tibia and fibula Dalila QwiqqL Immunizations Immunization Date Immunization Notes Care Provider Fa son 04-30-2022 SARS-CoV-2 (COVID-19 ) mRNA-1273 vaccine Dallia NILL [facility] 10-30-2021 SARS-CoV-2 (COVID-19 ) mRNA-1273 vaccine Dalila NILL [facility] 10-12-2020 SARS-CoV-2 (COVID-19 ) mRNA-1273 vaccine Dalila NILL [facility] 09-12-2020 SARS-CoV-2 (COVID-19 ) mRNA-1273 vaccine Dalila NILL [facility] Comment on above: Result Comment: 2023: TPV3 Payers Date Payer Category Payer Private Health Insurance [id number] 1958 Medicaid [id number] 1958 Medicare [id number] 1958 Medicare [id number] 1955 Unknown [id number] 2.16.8 [id number] 1955 Unknown [id number] 2.16.8 [id number] 1955 Unknown [id number] 2.16.8 [id number] 1955 Unknown [id number] 2.16.84 [id number] 1955 Unknown [id number] 2.16.84 [id number] 1956 Unknown [id number] 2.16.84 [id number] 1956 Unknown [id number] 2.16.8 [id number] Social History Date Type Detail Facility Start: 12-25-2023 Tobacco smoking status Light t obacco smoker (finding) [facility] Tobacco smoking status Never Ras[facility] [place] Sex Assigned At Male [facility] Functional Status Date Assessment Result Facility 12-25-2023 Functional Status N/A [facility] [place] Clinical Note 12-25-2023 Note Date & Type Note Facility 12-25-2023 Note Chief Complaint consultation for abdominal mass HPI Staff 68 year old male presents on consultation from [place] ED for umbilical mass. Presented to ED 12/13 with complaint of mass x [address] ABD/pelvis with small lesion vs fluid collection vs mass. Prescribed Bactrim BID x 10 days and Keflex 500mg TID x 10 days. History of Present Illness 68 yo male with h/o htn, DM, hyperlipidemia, PVD, CAD, CVA, pulmonary htn, schizophrenia, referred from [facility] ED for umbilical infection/abscess; patient seen in ED 12/14/23 for painful lump at umbilicus, no drainage, no fevers, normal wbc; abd/pelvic ct scan images reviewed, no fascial defect or peritoneal involvement; placed on Bactrim and Keflex for 10 days; patient poor historian, no one from longterm with him; denies umbilical pain, had some [...] Symbicort 160/4.5 i (more content not included)... [facility] Comment on above: Result Comment: Elec tronically Signed By: EDSON JOY, Dalila Rodriguez\Date and Time Signed: 12/25/23 10:50 EDT Evaluation + Plan note Note Date & Type Note Facility Evaluation + Plan note No data available for this section [facility] [place] [facility] Discharge instructions Note Date & Type Note Facility Hospital Discharge instructions No data available for this section [facility] [place] Progress note Note Date & Type Note Facility Progress note No data available for this section [facility] [place] Summary Purpose Family History No Family History [...] DATE CREATED AUTHOR AUTHOR'S ORGANIZ ATION 01/09/2024 [facility] FOR RECORDS PERTAINING TO PATIENTS WHO ARE [...] BE BASED ON THE PRIMARY CLINICAL RECORDS. [email or web address] [facility]. provides no warranty or guarantee of the accuracy or completeness of information in this document.
== END 2024-04-13 11:34 | DRG 871 ==
LOC: ER 16:26 → MS 18:29
PROVIDERS: Physician Assistant; Admitting Provider Internal Medicine; Emergency Provider Emergency Medicine Emergency Medical Services; Visit Provider Internal Medicine
DX: A41.9 Sepsis, unspecified organism (principal); G93.41 Metabolic encephalopathy; L03.115 Cellulitis of right lower limb; Z79.899 Other long term (current) drug therapy; E11.42 Type 2 diabetes mellitus with diabetic polyneuropathy; I10 Essential (primary) hypertension; E11.628 Type 2 diabetes mellitus with other skin complications; R65.20 Severe sepsis without septic shock; F17.210 Nicotine dependence, cigarettes, uncomplicated; R41.0 Disorientation, unspecified; E11.51 Type 2 diabetes mellitus with diabetic peripheral angiopathy without gangrene; Z89.512 Acquired absence of left leg below knee; Z89.511 Acquired absence of right leg below knee; Z79.4 Long term (current) use of insulin
CPT/HCPCS: 36415; 70450; 71045; 73590; 80053; 80202; 81001; 82800; 82948; 83605; 84443; 84484; 85007; 85025; 85027; 85610; 85652; 86140; 87040; 93005; 93971; 94640; 94761; 96361; 96365; 96366; 96367; 96368; 96372; 97162; 97165; 99285; G0378; J1650; J2543; J3370